=== PATIENT | female | born 1970 | race Caucasian/White ===

== ENCOUNTER 2020-08-06 12:25 | Outpatient (REF) | payer OTHER, SELFPAY ==
[2020-08-06 13:21] LABS: Basophils Percent Auto 0.6 % (0-2); Eosinophils Absolute Auto 0.2 X10*3/uL (0.0-0.4); Eosinophils Percent Auto 3.2 % (0-4); Hematocrit 41.4 % (37-47); Hemoglobin 13.5 g/dl (12.0-16.0); Imm Gran Abs Auto 0.02 X10*3/uL (0.00-0.03); Imm Gran Pct Auto 0.3 % (0.0-0.4); Lymphocytes Absolute Auto 2.4 X10*3/uL (1.2-4.9); Lymphocytes Percent Auto 35.3 % (20-40); MANUAL DIFF FLAG NO; Mean Corpuscular HGB Conc 32.6 g/dl (31.0-35.0); Mean Corpuscular Hemoglobin 28.7 pg (27.0-33.0); Mean Corpuscular Volume 87.9 fL (80-98); Mean Platelet Volume 10.8 fL (9.4-12.3); Monocytes Absolute Auto 0.7 X10*3/uL (0.1-1.2); Monocytes Percent Auto 9.7 % (2-11); Neutrophils Absolute Auto 3.5 X10*3/uL (2.0-8.3); Neutrophils Percent Auto 50.9 % (45-73); Platelet Count 340 X10*3/uL (160-400); Red Blood Count 4.71 X10*6/uL (4.20-5.50); Red Cell Distribution Width 13.3 % (11.0-16.0); White Blood Count 6.8 X10*3/uL (4.8-10.8)
[2020-08-06 13:32] LABS: Estimated Average Glucose 108 mg/dL; Hemoglobin A1c % 5.4 %
[2020-08-06 13:47] LABS: Creatinine Urine 101.56 mg/dL
[2020-08-06 13:49] LABS: Creatinine Urine 100.33 mg/dL; Microalbumin Urine < 5.0 mg/L
[2020-08-06 16:57] LABS: Alanine Aminotransferase 30 U/L (0-31); Albumin Level 4.5 g/dL (3.5-5.0); Alkaline Phosphatase 67 U/L (39-117); Anion Gap 14 (12-20); Aspartate Amino Transferase 21 U/L (5-31); Bilirubin Total 0.3 mg/dL (0.0-1.0); Blood Urea Nitrogen 9 mg/dL (9-16); Calcium 9.2 mg/dL (8.4-10.2); Carbon Dioxide 25 mmol/L (22-29); Chloride 105 mmol/L (96-108); Cholesterol 205 mg/dL; Estimated Glomerular Filt Rate > 60; Glucose Random 101 mg/dL (60-115); HDL Cholesterol 42 mg/dL; LDL Cholesterol Calculated 121 mg/dl; Potassium 4.4 mmol/l (3.3-5.1); Sodium 140 mmol/L (135-145); Total Protein 7.2 g/dL (6.5-8.0); Triglycerides 210 mg/dL
[2020-08-06 17:17] LABS: Thyroid Stimulating Hormone 4.45 uIU/mL (0.32-4.0)
== END 2020-08-06 12:26 | disposition home or self-care (01) ==
LOC: HO.LAB 12:25
PROVIDERS: PCP Internal Medicine; Visit Provider Internal Medicine
DX: E03.8 Other specified hypothyroidism (principal); E11.9 Type 2 diabetes mellitus without complications; E78.2 Mixed hyperlipidemia; G47.33 Obstructive sleep apnea (adult) (pediatric)
CPT/HCPCS: 36415; 80053; 80061; 82043; 83036; 84443; 85025

== ENCOUNTER 2021-03-20 14:18 | Outpatient (REF) | payer OTHER, SELFPAY ==
[2021-03-20 15:11] LABS: MANUAL DIFF FLAG NO
[2021-03-20 15:14] LABS: Basophils Percent Auto 0.2 % (0-2); Eosinophils Absolute Auto 0.2 X10*3/uL (0.0-0.4); Eosinophils Percent Auto 1.7 % (0-4); Hematocrit 39.8 % (37-47); Hemoglobin 13.2 g/dl (12.0-16.0); Imm Gran Abs Auto 0.02 X10*3/uL (0.00-0.03); Imm Gran Pct Auto 0.2 % (0.0-0.4); Lymphocytes Absolute Auto 2.6 X10*3/uL (1.2-4.9); Lymphocytes Percent Auto 29.2 % (20-40); Mean Corpuscular HGB Conc 33.2 g/dl (31.0-35.0); Mean Corpuscular Hemoglobin 29.1 pg (27.0-33.0); Mean Corpuscular Volume 87.9 fL (80-98); Mean Platelet Volume 10.7 fL (9.4-12.3); Monocytes Absolute Auto 0.8 X10*3/uL (0.1-1.2); Monocytes Percent Auto 8.7 % (2-11); Neutrophils Absolute Auto 5.3 X10*3/uL (2.0-8.3); Platelet Count 326 X10*3/uL (160-400); Red Blood Count 4.53 X10*6/uL (4.20-5.50); Red Cell Distribution Width 13.3 % (11.0-16.0); White Blood Count 8.9 X10*3/uL (4.8-10.8)
[2021-03-20 15:33] LABS: Estimated Average Glucose 108 mg/dL; Hemoglobin A1c % 5.4 %
[2021-03-20 15:38] LABS: Alanine Aminotransferase 20 U/L (0-31); Albumin Level 4.3 g/dL (3.5-5.0); Alkaline Phosphatase 71 U/L (39-117); Anion Gap 11 (12-20); Aspartate Amino Transferase 16 U/L (5-31); Bilirubin Total 0.5 mg/dL (0.0-1.0); Blood Urea Nitrogen 6 mg/dL (9-16); Calcium 9.3 mg/dL (8.4-10.2); Carbon Dioxide 28 mmol/L (22-29); Chloride 106 mmol/L (96-108); Cholesterol 161 mg/dL; Estimated Glomerular Filt Rate > 60; Glucose Random 98 mg/dL (60-115); HDL Cholesterol 37 mg/dL; LDL Cholesterol Calculated 102 mg/dl; Potassium 4.2 mmol/L (3.3-5.1); Sodium 141 mmol/L (135-145); Triglycerides 111 mg/dL
[2021-03-20 16:00] LABS: Thyroid Stimulating Hormone 1.44 uIU/mL (0.32-4.0)
[2021-03-20 17:12] LABS: Creatinine Urine 237.02 mg/dL; Microalbum/Creatinine Ratio Ur 5.4 ug/mg cr
== END 2021-03-20 14:19 | disposition home or self-care (01) ==
LOC: HO.LAB 14:18
PROVIDERS: PCP Internal Medicine; Visit Provider Internal Medicine
DX: E03.8 Other specified hypothyroidism (principal); E11.9 Type 2 diabetes mellitus without complications; E78.2 Mixed hyperlipidemia; G47.33 Obstructive sleep apnea (adult) (pediatric)
CPT/HCPCS: 36415; 80053; 80061; 82043; 83036; 84443; 85025

== ENCOUNTER 2021-03-20 15:10 | Emergency (ER) | payer OTHER, SELFPAY ==
[2021-03-20 16:31] VITALS: BP 115/65; PULSE 75; RESP 16; TEMP 37.1; O2SAT 100; BMI 25.8
[2021-03-20 17:15] VITALS: BP 129/69; PULSE 74; RESP 18; TEMP 36.7; O2SAT 97
--- NOTE | 2021-03-20 17:28 | ED.GENADULT ---
HPI - General Adult General Chief complaint: Back Pain/Injury Stated complaint: neck pain Time Seen by Provider: 03/20/21 17:27 Source: patient Mode of arrival: ambulatory Limitations: no limitations History of Present Illness HPI narrative: 50-year-old female is here today for complaining of left shoulder and neck pain. Patient reports that she will couple 1 week ago with the left neck pain. Now she reports that the pain radiates to her shoulders. Denies any other symptoms. Able to move her extremities and has good range of motions to both upper extremities. Patient denies headache, dizziness, chest pain, respiratory distress. Onset (ago): week(s) (One) Location: neck and left Radiation: extremity Severity: moderate Severity scale (1-10): 7 Quality: aching Pain Consistency: constant Relieving factors: immobilization Exacerbating factors: movement Associated symptoms: denies other symptoms Related Data Previous Rx's Medication Instructions Recorded cyclobenzaprine 10 mg tablet 10 mg PO BID PRN #10 tab 03/20/21 ibuprofen 600 mg tablet 600 mg PO Q8H PRN #20 tab 03/20/21 Allergies Allergy/AdvReac Type Severity Reaction Status Date / Time simvastatin Allergy Unknown abd pain Verified 03/20/21 16:36 No Known Allergies Allergy Verified 03/20/21 16:36 Review of Systems Review of Systems: Constitutional : No Weight loss, No Fever, No Chills, No Night Sweats, No Fatigue, No Malaise ENT/Mouth : No Hearing loss, No Ear Pain, No Nasal Congestion, No Sinus Pain, No Hoarseness, No sore throat, No Rhinorrhea, No Swallowing Difficulty Eyes: No Eye Pain, No Swelling, No Redness, No Foreign Body, No Discharge, No Vision Changes Cardiovascular : No Chest Pain, No SOB, No Dyspnea on Exertion, No Orthopnea, No Edema, No Palpitations Respiratory : No Cough, No Sputum, No Wheezing, No Smoke Exposure, No Dyspnea Genitourinary : no irregular bleeding, No Dysuria, No Urinary Frequency, No Hematuria, No Urinary Incontinence, No Urgency, No Flank Pain, No Urinary Flow Changes, No Hesitancy Musculoskeletal : No joint pain, No Myalgias, No Joint Swelling Skin : No Skin Lesions, No rash Neuro : No Weakness, No Numbness, No Paresthesias, No Loss of Consciousness, No Dizziness, No Headache Psych : No Anxiety/Panic, No Depression, No SI/HI/AH/VH, No Social Issues, Yes all other systems are reviewed and are negative PMFSH Past Medical History Medical History (Updated 03/20/21 @ 17:50 by Brandy Rawls [facility]) Diabetes Hypercholesteremia Hyperthyroidism Social History Social History Advance Directives: No Advance Directives Information Provided: No Patient : No Physical Exam Vital Signs: Vital Signs: Last Vital Signs Temp 98.1 F 03/20/21 17:15 Pulse 74 03/20/21 17:15 Resp 18 03/20/21 17:15 BP 129/69 03/20/21 17:15 Pulse Ox 97 03/20/21 17:15 Body Mass Index 25.8 Const: General: healthy appearing, no acute distress and well developed Nutritional Appearance: well nourished Orientation/consciousness: patient oriented x3 Neck: Neck: Yes normal visual inspection, Yes full ROM, Yes trachea midline and Yes other (Trapezius muscle tenderness) Thyroid: Thyroid normal Chest: Chest palpation & inspection: normal inspection of the chest Resp: Effort & Inspection: normal respiratory effort Auscultation: clear to auscultation bilaterally Cardio: Rate: regular rate Rhythm: regular rhythm GI: Inspection: Yes normal to inspection Skin: General skin exam: elasticity normal, turgor normal and dry skin Neuro: General: patient oriented x3 Course Course Course Narrative: Patient is here today for complains of left neck pain radiating to left shoulder. Patient reports that she woke up 1 week ago with left neck pain. She denies any injuries. Patient reports that she feels like her neck is stiff and she is unable to move it to either the left or right side. Patient reports that her trapezius muscle is also sore. Patient denies any heavy lifting. Patient denies any other symptoms. I will order ibuprofen and cyclobenzaprine. I will send her home to follow-up with her PCP for possible physical therapy. Patient is agreeable to plan of care Discharge Plan Discharge Clinical Impression: Muscle spasm of left shoulder, Neck and shoulder pain Patient Disposition: Home, Self-Care Instructions: Muscle Spasm (ED), Neck Pain (ED) Additional Instructions: You were seen here today for neck pain. You were given muscle relaxant and anti-inflammatory medication. Please continue to take that at home on as needed basis. You may apply heat to the affected area. Please follow-up with your primary care provider for possible physical therapy. You may return to emergency department if your symptoms will get worse or if you experience any additional concerning symptoms. Prescriptions: New cyclobenzaprine 10 mg tablet 10 mg PO BID PRN (Reason: muscle spasm) Qty: 10 RF: 0 ibuprofen 600 mg tablet 600 mg PO Q8H PRN (Reason: pain) Qty: 20 RF: 0
[2021-03-20] MEDS: Cyclobenzaprine HCl 10 MG TABLET PO (18:07)
[2021-03-20] MEDS: Ibuprofen 600 MG TABLET PO (18:07)
== END 2021-03-20 18:20 | disposition home or self-care (01) ==
PROVIDERS: Emergency Provider Emergency Medicine; PCP Internal Medicine
DX: M62.838 Other muscle spasm (principal); M54.2 Cervicalgia; M25.512 Pain in left shoulder; E11.9 Type 2 diabetes mellitus without complications
CPT/HCPCS: 99283; 99284

== ENCOUNTER 2021-05-26 19:48 | Emergency (ER) | payer OTHER, SELFPAY ==
[2021-05-26 21:06] VITALS: BP 123/78; PULSE 110; RESP 18; TEMP 37.2; O2SAT 99; BMI 27.8
[2021-05-26 21:30] LABS: UPreg QC Valid YES; Urine Pregnancy NEGATIVE (NEGATIVE)
[2021-05-26 21:34] LABS: Appearance Urine CLOUDY; Color Urine RED; Glucose Urine UA NEG (NEG); Leukocyte Esterase Urine TRACE (NEG); Nitrite Urine NEG (NEG); PH 6.5 (5.0-8.0); UACC Culture Trigger YES; Urine Blood 2+ (NEG); Urine Ketones NEG (NEG); Urine Protein 3+ MG/DL (NEG-TRACE)
[2021-05-26 21:35] LABS: RBC Urine TNTC /HPF (0)
[2021-05-26 21:36] LABS: Bacteria Urine 1+ /LPF
[2021-05-26 22:30] VITALS: BP 118/70; PULSE 97; RESP 18; TEMP 36.9; O2SAT 97
--- NOTE | 2021-05-26 22:41 | ED_ITS ---
HPI - Female Genitourinary General Chief complaint: Urogenital-Female Stated complaint: Blood in urine Time Seen by Provider: 05/26/21 22:24 Source: patient Mode of arrival: ambulatory Limitations: no limitations History of Present Illness HPI Narrative: Patient comes emergency room complaining of hematuria, frequency starting approximately 1 hour prior to arrival. Patient denies flank pain, no fever chills. Related Data Previous Rx's Medication Instructions Recorded cyclobenzaprine 10 mg tablet 10 mg PO BID PRN #10 tab 03/20/21 ibuprofen 600 mg tablet 600 mg PO Q8H PRN #20 tab 03/20/21 phenazopyridine 100 mg tablet 100 mg PO TID #6 tab 05/26/21 sulfamethoxazole 800 1 tab PO BID #6 tab 05/26/21 mg-trimethoprim 160 mg tablet (Bactrim DS) Allergies Allergy/AdvReac Type Severity Reaction Status Date / Time simvastatin Allergy Unknown abd pain Verified 03/20/21 16:36 No Known Allergies Allergy Verified 03/20/21 16:36 Review of Systems Review of Systems: Constitutional : No Weight loss, No Fever, No Chills, No Night Sweats, No Fatigue, No Malaise ENT/Mouth : No Hearing loss, No Ear Pain, No Nasal Congestion, No Sinus Pain, No Hoarseness, No sore throat, No Rhinorrhea, No Swallowing Difficulty Eyes: No Eye Pain, No Swelling, No Redness, No Foreign Body, No Discharge, No Vision Changes Cardiovascular : No Chest Pain, No SOB, No Dyspnea on Exertion, No Orthopnea, No Edema, No Palpitations Respiratory : No Cough, No Sputum, No Wheezing, No Smoke Exposure, No Dyspnea Gastrointestinal : No Nausea, No Vomiting, No Diarrhea, No Constipation, No abdominal Pain, No Hematochezia, No Melena Genitourinary : Complaining of dysuria and hematuria No Urinary Incontinence, No Urgency, No Flank Pain, No Urinary Flow Changes, No Hesitancy Musculoskeletal : No joint pain, No Myalgias, No Joint Swelling Skin : No Skin Lesions, No rash Neuro : No Weakness, No Numbness, No Paresthesias, No Loss of Consciousness, No Dizziness, No Headache Psych : No Anxiety/Panic, No Depression, No SI/HI/AH/VH, No Social Issues, Heme/Lymph: No Bruising, No Bleeding,No Lymphadenopathy Endocrine : No Polyuria, No Polydipsia, No Temperature Intolerance [facility] Past Medical History Medical History Diabetes Hypercholesteremia Hyperthyroidism Social History Social History Advance Directives: No Advance Directives Information Provided: No Patient : No Physical Exam Vital Signs: Vital Signs: Last Vital Signs Temp 98.4 F 05/26/21 22:30 Pulse 97 05/26/21 22:30 Resp 18 05/26/21 22:30 BP 118/70 05/26/21 22:30 Pulse Ox 97 05/26/21 22:30 Body Mass Index 27.8 Const: Other: Appearance: Alert. Oriented X3. No acute distress. Well- appearing Eyes: Pupils equal, round and reactive to light. ENT: Pharynx normal. Neck: Normal inspection. Neck supple. No lymph nodes noted. No crepitus CVS: Normal heart rate and rhythm. Pulses normal. Normal S1 and S2 Respiratory: No respiratory distress. Breath sounds normal. No Wheezing. No rales Abdomen: Soft and nontender. No rigidity. No distention, no flank pain Skin: Skin warm and dry. Normal skin color. Normal skin turgor. Extremities: No lower extremity edema. No lower extremity edema. No Lacerations. No Rash Neuro: Oriented X 3. No motor deficit. No sensory deficit. Moving all extermities. No slurred speech. Course Course Course Narrative: Patient has a urinary tract infection. Patient has no flank pain, no fever, pyelonephritis/sepsis not suspected. Patient was given 1 dose of phenazopyridine and Bactrim in the emergency room. Patient instructed to follow-up with her primary care physician for resolution of the UTI MDM - Female Genitourinary Lab Data Labs: Lab Results 05/26/21 05/26/21 Range/Units 21:19 21:19 Urine Color RED Urine Appearance CLOUDY Urine pH 6.5 (5.0-8.0) Ur Specific [place] 1.020 (1.005-1.025) Urine Protein 3+ H (NEG-TRACE) MG/DL Urine Glucose (UA) NEG (NEG) MG/DL Urine Ketones NEG (NEG) MG/DL Urine Blood 2+ H (NEG) Urine Nitrite NEG (NEG) Ur Leukocyte Esterase TRACE H (NEG) Urine RBC TNTC H (0) /HPF Urine WBC 1-4 (0-4) /HPF Ur Squamous Epith Cells NONE /LPF Urine Bacteria 1+ /LPF Urine Test NEGATIVE (NEGATIVE) Discharge Plan Discharge Clinical Impression: Urinary tract infection Patient Disposition: Home, Self-Care Instructions: Urinary Tract Infection in Women (ED) Additional Instructions: Please follow-up with your primary care physician tomorrow. If you have any worsening or new symptoms, please return to the emergency room or call 911 Prescriptions: New phenazopyridine 100 mg tablet 100 mg PO TID Qty: 6 RF: 0 sulfamethoxazole-trimethoprim [Bactrim DS] 800-160 mg tablet 1 tab PO BID Qty: 6 RF: 0 No Action cyclobenzaprine 10 mg tablet 10 mg PO BID PRN (Reason: muscle spasm) Qty: 10 RF: 0 ibuprofen 600 mg tablet 600 mg PO Q8H PRN (Reason: pain) Qty: 20 RF: 0
== END 2021-05-26 23:38 | disposition home or self-care (01) ==
PROVIDERS: Emergency Provider Emergency Medicine; PCP Internal Medicine
DX: N39.0 Urinary tract infection, site not specified (principal); E11.9 Type 2 diabetes mellitus without complications
CPT/HCPCS: 81001; 81025; 87086; 87088; 87186; 99283

== ENCOUNTER 2021-08-28 07:50 | Outpatient (REF) | payer OTHER, SELFPAY ==
--- NOTE | ~2021-08-28 | MM_ITS ---
EXAMINATION: MM SCREENING DIGITAL BREAST TOMOSYNTHESIS, BILATERAL CLINICAL INFORMATION: Screening. Asymptomatic. The lifetime risk of breast cancer based on the Tyrer-Cuzick Model is 12.2%. COMPARISON: Mammography: 04/06/2020 and studies dating back to 08/17/2013. TECHNIQUE: Digital breast tomosynthesis is performed in both the craniocaudal and mediolateral oblique views along with computer-aided detection (CAD). Synthesized 2D images are generated from the tomosynthesis. FINDINGS: There are scattered areas of fibroglandular density (ACR BI-RADS breast composition Category b). There is a stable parenchymal pattern of the right breast without new abnormal dominant mass or suspicious grouping of microcalcifications. Within the lateral aspect of the left breast approximately 7 cm from the nipple there is a circumscribed somewhat lobulated density measuring 6 x 7 mm in size without associated microcalcifications. On the mediolateral oblique study there is a circumscribed density along the nipple line however this lies only approximately 4 cm from the nipple and may not correspond to the craniocaudal density. Recommend further evaluation with spot compression view in craniocaudal projection and a 90 degree mediolateral view of the left breast. If lesion is persistent then ultrasound could be performed. MM/MM tomosynthesis screening BI IMPRESSION: Left breast density for further evaluation as described. ASSESSMENT: BI-RADS 0: Incomplete - Need Additional Imaging Evaluation RECOMMENDATION: 1. Additional views of the left breast. 2. Targeted ultrasound if warranted after review of the additional views. 3. Radiology department staff will contact the patient for additional imaging.
== END 2021-08-28 07:51 | disposition home or self-care (01) ==
LOC: HO.MAMMO 07:50
PROVIDERS: PCP Internal Medicine; Visit Provider Internal Medicine
DX: Z12.31 Encounter for screening mammogram for malignant neoplasm of breast (principal)
CPT/HCPCS: 77063; 77067

== ENCOUNTER 2021-09-10 14:09 | Outpatient (REF) | payer OTHER, SELFPAY ==
--- NOTE | ~2021-09-10 | MM_ITS ---
EXAMINATION: MM DIAGNOSTIC DIGITAL BREAST TOMOSYNTHESIS, LEFT US DIAGNOSTIC ULTRASOUND BREAST, LEFT CLINICAL INFORMATION: Recall from screening for question of oval density 6 mm mid 3:00 left breast. TC score 12%. COMPARISON: Mammography: 08/28/2021, 04/06/2020, 10/25/2018, 05/18/2017, 05/13/2016 TECHNIQUE: Digital breast tomosynthesis is performed. 2D images are generated from the tomosynthesis. The following views are obtained: Spot CC, spot MLO, standard ML. Ultrasound left breast is targeted to the outer breast. Grayscale imaging and color Doppler are performed without and with harmonics. FINDINGS: There are scattered areas of fibroglandular density (ACR BI-RADS breast composition Category b). Additional views show subtle smooth oval nodular asymmetry mid 3:00 left breast. There is no spiculation or associated calcification. In retrospect, finding is questionably seen on prior exams without developing density. Ultrasound left breast demonstrates a simple cyst 3:00 position 7 cm from nipple measuring 5 x 4 mm. There is no solid mass or architectural abnormality. This cyst may correspond to the mammographic finding. Results are discussed with the patient at time of visit. As a precaution, short interval follow-up left mammography will be performed in 6 months. MM/MM tomosynthesis added views L IMPRESSION: 1. Benign-appearing nodular asymmetry mid 3:00 left breast, possibly chronic and partially obscured on prior exams. 2. Benign simple cyst outer left breast 0.5 cm which may correspond to the mammographic finding. ASSESSMENT: BI-RADS 3: Probably Benign RECOMMENDATION: Diagnostic left mammography in 6 months. This patient's information was entered into a reminder system with a target due date for their next mammogram.
== END 2021-09-10 14:10 | disposition home or self-care (01) ==
LOC: HO.MAMMO 14:09
PROVIDERS: Visit Provider Internal Medicine
DX: R92.2 Inconclusive mammogram (principal)
CPT/HCPCS: 76642; 77061; 77065

== ENCOUNTER 2022-03-11 12:41 | Outpatient (REF) | payer OTHER, SELFPAY ==
--- NOTE | ~2022-03-11 | MM_ITS ---
EXAMINATION: MM DIAGNOSTIC DIGITAL BREAST TOMOSYNTHESIS, LEFT US DIAGNOSTIC ULTRASOUND BREAST, LEFT CLINICAL INFORMATION: Short interval six-month follow-up for smooth oval nodular asymmetry 3:00 left breast likely related to simple cyst on prior ultrasound. The lifetime risk of breast cancer based on the Tyrer-Cuzick Model is 12%. COMPARISON: Mammography: 09/10/2021, 08/28/2021 (BI-RADS 0), 10/25/2018 TECHNIQUE: Digital breast tomosynthesis is performed in both the craniocaudal and mediolateral oblique views along with computer-aided detection (CAD). Synthesized 2D images are generated from the tomosynthesis. Ultrasound left breast is targeted to the outer breast using grayscale imaging and color Doppler without and with harmonics. FINDINGS: There are scattered areas of fibroglandular density (ACR BI-RADS breast composition Category b). The smooth nodule under 1 cm mid to posterior 3:00 position is similar in size and contour. There is no interval dominant mass or architectural abnormality or abnormal calcifications. Ultrasound left breast again shows small simple cyst 3:00 position 7 cm from nipple likely corresponding to the mammographic finding although smaller in size, measuring 3 x 5 mm. There is no solid mass or architectural abnormality or focal duct ectasia. Results are discussed with the patient at time of visit. MM/MM tomosynthesis diagnostic LT IMPRESSION: -Mammography shows no significant change from prior study. -Ultrasound demonstrates small cyst outer left breast likely corresponding to the mammographic finding. No solid nodule or architectural abnormality. ASSESSMENT: BI-RADS 3: Probably Benign RECOMMENDATION: Diagnostic bilateral mammography at time of annual mammography, due in 6 months. This patient's information was entered into a reminder system with a target due date for their next mammogram.
== END 2022-03-11 12:42 | disposition home or self-care (01) ==
LOC: HO.MAMMO 12:41
PROVIDERS: Visit Provider Internal Medicine
DX: R92.2 Inconclusive mammogram (principal)
CPT/HCPCS: 76642; 77061; 77065

== ENCOUNTER 2022-03-16 08:29 | Day surgery (SDC) | payer OTHER, SELFPAY ==
[2022-03-10 11:54] VITALS: BMI 28.6
--- NOTE | 2022-03-13 08:39 | P.CONAN_ITS ---
Documented by User: Keri Hernandez NP 03/13/22 08:39 HPI - Anesthesia Eval Consult details Narrative: 51yo F for Upper Endoscopy with Balloon Dilitation, Colonoscopy PMFSH Past Medical History Medical History (Updated 03/10/22 @ 11:53 by Rosalba Thomas RN) Anxiety Asthma Bipolar disorder Depression Dysphagia Hypercholesteremia Hyperthyroidism Sleep apnea Surgical History Surgical History (Updated 03/10/22 @ 11:44 by Rosalba Thomas RN) Hx of cholecystectomy Hx of laparoscopy Hx of tubal ligation Social History Social History Patient Tobacco Use Status: Former Tobacco user Are you DNR?: No Advance Directives: No Advance Directives Information Provided: Yes Recently lost weight without trying: No Nutrition Risks: No Nutritional Risk Patient : No Meds Allergies Allergy/AdvReac Type Severity Reaction Status Date / Time simvastatin Allergy Intermediate abd pain Verified 03/10/22 11:46 Home Medications Medication Instructions Recorded Confirmed Last Taken Type atorvastatin 80 mg tablet 1 tab PO BEDTIME 03/10/22 03/10/22 Unknown History cetirizine 10 mg tablet 1 tab PO DAILY 03/10/22 03/10/22 Unknown History clonazepam 0.5 mg tablet 1 tab PO BID PRN anxiety 03/10/22 03/10/22 Unknown History fluticasone propionate 110 2 puff inhalation BID 03/10/22 03/10/22 Unknown History mcg/actuation HFA aerosol inhaler (Flovent HFA) fluticasone propionate 50 1 spray intranasal BID 03/10/22 03/10/22 Unknown History mcg/actuation nasal spray,suspension levothyroxine 100 mcg tablet 1 tab PO DAILY 03/10/22 03/10/22 Unknown History sertraline 50 mg tablet 1.5 tab PO QAM 03/10/22 03/10/22 Unknown History Exam Exam Date and Time: March 13, 2022 0839 Height,Weight and Vital Signs: Height 4 ft 11 in Weight 64.41 kg Assessment and Plan Assessment Anesthesia Assessment: Chart Reviewed Documented by User: Sergo Squires MD 03/16/22 09:39 [facility] Past Medical History Medical History (Updated 03/10/22 @ 11:53 by Rosalba Thomas RN) Anxiety Asthma Bipolar disorder Depression Dysphagia Hypercholesteremia Hyperthyroidism Sleep apnea Family History Family history of problems with anesthesia: No Surgical History Surgical History (Updated 03/10/22 @ 11:44 by Rosalba Thomas RN) Hx of cholecystectomy Hx of laparoscopy Hx of tubal ligation History of Problems with Anesthesia: No Social History Social History Patient Tobacco Use Status: Former Tobacco user Are you DNR?: No Advance Directives: No Advance Directives Information Provided: Yes Recently lost weight without trying: No Nutrition Risks: No Nutritional Risk Patient : No Meds Allergies Allergy/AdvReac Type Severity Reaction Status Date / Time simvastatin Allergy Intermediate abd pain Verified 03/10/22 11:46 Home Medications Medication Instructions Recorded Confirmed Last Taken Type atorvastatin 80 mg tablet 1 tab PO BEDTIME 03/10/22 03/10/22 Unknown History cetirizine 10 mg tablet 1 tab PO DAILY 03/10/22 03/10/22 Unknown History clonazepam 0.5 mg tablet 1 tab PO BID PRN anxiety 03/10/22 03/10/22 Unknown History fluticasone propionate 110 2 puff inhalation BID 03/10/22 03/10/22 Unknown History mcg/actuation HFA aerosol inhaler (Flovent HFA) fluticasone propionate 50 1 spray intranasal BID 03/10/22 03/10/22 Unknown History mcg/actuation nasal spray,suspension levothyroxine 100 mcg tablet 1 tab PO DAILY 03/10/22 03/10/22 Unknown History sertraline 50 mg tablet 1.5 tab PO QAM 03/10/22 03/10/22 Unknown History Exam Airway Mallampati Class: I TM Dist: >3cm Neck ROM: Full Loose/Missing/Broken Teeth: No Heart: rrr Lungs: clear Assessment and Plan Final Anesthetic Review Family History of Problems with Anesthesia: No History of Problems with Anesthesia: No NPO: Yes ASA Class: II Final Preanesthetic Review: No Changes in Pt Med Stat, Meds/Allgs Chart Reviewed, Consent Obtained/Reviewed and Anes Risks/Benef Reviewed Patient Risk: Intermediate Procedure Risk: Low Anesthetic Plan Anesthetic Plan: MAC: Disposition: Standard PACU
[2022-03-16 09:13] VITALS: BP 116/76; PULSE 81; RESP 19; TEMP 36.6; O2SAT 99
[2022-03-16] MEDS: Lactated Ringers 1,000 ML 100 ML IVCONT (09:30)
[2022-03-16 10:42] VITALS: BP 117/72; PULSE 81; RESP 14; TEMP 36.2; O2SAT 99
--- NOTE | 2022-03-16 10:48 | P.BOP_ITS ---
Brief Operative Note Date of Service: 03/16/22 Pre-op diagnosis: Dysphagia, Screening Post-op diagnosis: other (Gerd, Hiatal hernia, Gastritis, Colon polyp) Procedure: EGD with biopsies and Balloon dilation, Colonoscopy to the cecum and TI with hot snare polypectomy Surgeon: Gabriele Moreau Anesthesia: MAC Was an Digital Sales Executive used for this Procedure?: No Estimated blood loss (mL): 2.0 Pathology: other (A. EG Junction at 36cm B. Gastric antrum C. Esophagus at 25cm D. Polyp at 20cm) Condition: stable Disposition: PACU
[2022-03-16 10:57] VITALS: BP 111/65; PULSE 77; RESP 16; O2SAT 99
[2022-03-16 11:12] VITALS: BP 128/76; PULSE 67; RESP 16; TEMP 36.2; O2SAT 99
--- NOTE | 2022-03-16 11:19 | OP_ITS ---
SURGEON: Gabriele Moreau MD INDICATIONS: The patient presents for evaluation of dysphagia and colorectal cancer screening. Full consent obtained from her for both procedures, including risks of bleeding and perforation. PREOPERATIVE DIAGNOSIS: POSTOPERATIVE DIAGNOSIS: PROCEDURE PERFORMED: ESTIMATED BLOOD LOSS: COMPLICATIONS: ANESTHESIA: Monitored anesthesia care. ASSISTANTS: SPECIMENS: PROCEDURES: Esophagogastroduodenoscopy with biopsies and balloon dilation of gastroesophageal junction, and colonoscopy to cecum and terminal ileum with hot snare polypectomy. PREOPERATIVE DIAGNOSES: Dysphagia, colorectal cancer screening. POSTOPERATIVE DIAGNOSES: Dysphagia, colorectal cancer screening, gastroesophageal reflux, small hiatal hernia, mild gastritis, rule out eosinophilic esophagitis, colon polyp, diverticulosis, internal hemorrhoids. DESCRIPTION OF PROCEDURE: The patient was placed in the left lateral decubitus position. The Olympus video gastroscope was passed in the posterior oropharynx and upper esophagus under direct vision. The scope was passed slowly to the distal esophagus. The gastroesophageal junction appeared at 36 cm. There was evidence of some erythema, edema, and some mild friability. There was no evidence of any definitive stricture, ring, ulceration, nor mass. The scope easily entered into the stomach. There was a small hiatal hernia. The scope was advanced to pylorus and the duodenum was cannulated to the descending portion. The duodenum including the bulb appeared normal without mass or ulceration. The scope was withdrawn back in the stomach. The gastric antrum had some mild areas of edema and erythema. Biopsies were obtained. There was good peristalsis. The scope was retroflexed visualizing the proximal stomach carefully, which appeared normal, without any sign of mass or ulceration. The scope was straightened and withdrawn back in the esophagus. Again, the gastroesophageal junction appeared patent, but I did use a [employer] balloon to dilate the gastroesophageal junction from 18 mm to 19 mm to 20 mm at the recommended pressure for between 30 and 60 seconds each. There was no appreciable difference nor any significant heme noted post dilation. Biopsies were obtained at the EG junction at 36 cm. Proximal to this, the esophageal mucosa appeared normal. There was no evidence of any proximal esophageal rings. Biopsies were obtained at 25 cm. The scope was withdrawn from the patient. She was turned around for colonoscopy. The digital rectal exam revealed no abnormalities. The Olympus video pediatric colonoscope was entered into the rectum and advanced easily to the cecum. Once in the cecum, I did identify normal-appearing cecal pouch with appendiceal orifice and a normal-appearing ileocecal valve. The terminal ileum was cannulated and appeared normal. Scope was withdrawn back in the colon. The entire cecum and ileocecal valve appeared normal. The scope was slowly withdrawn assessing all mucosal surfaces carefully. Preparation was excellent. At 20 cm, there was an approximately 6 mm to 8 mm polyp, which was removed by hot snare polypectomy and recovered by suction. The polypectomy site appeared clean, without any sign of residual polyp nor bleeding. I did not visualize any other polyps, colitis, or angiodysplasia. There was a mild amount of sigmoid diverticulosis. In the rectum, scope was retroflexed visualizing some small internal hemorrhoids, but no other pathology. The rectal mucosa appeared normal. The scope was straightened and withdrawn the patient. She tolerated both procedures well and was returned to recovery area in stable condition. IMPRESSION: 1. Small hiatal hernia, gastroesophageal reflux. 2. Mild gastritis. 3. Rule out eosinophilic esophagitis. 4. Colon polyp. 5. Diverticulosis. 6. Internal hemorrhoids. PLAN: The results of the pathology will be checked. Given these findings, I am going to start her on omeprazole 40 mg daily to see if that will help with her dysphagia, in the event she is having some acid reflux induced esophageal spasm. If she continues to have significant dysphagia, I would then recommend further workup with barium swallow and esophageal motility studies. She will be seen in 3 months for followup in this regard. I would recommend a repeat colonoscopy in 5 years. She was advised not to use any aspirin and NSAIDs for 1 week. MD AZUL Bowens/ALFONSO / [id number]
== END 2022-03-16 11:43 | disposition home or self-care (01) ==
PROVIDERS: PCP Internal Medicine; Visit Provider Internal Medicine
PROC: (CPT 45385; principal; 2022-03-16 09:40)
PROC: 0DJD8ZZ Inspection of Lower Intestinal Tract, Via Natural or Artificial Opening Endoscopic (ICD-10-PCS; CPT 45378; 2022-03-16 09:40)
DX: Z12.11 Encounter for screening for malignant neoplasm of colon (principal); D12.5 Benign neoplasm of sigmoid colon; K57.30 Diverticulosis of large intestine without perforation or abscess without bleeding; K64.8 Other hemorrhoids; R13.10 Dysphagia, unspecified; K29.50 Unspecified chronic gastritis without bleeding; K21.9 Gastro-esophageal reflux disease without esophagitis; K44.9 Diaphragmatic hernia without obstruction or gangrene; E78.00 Pure hypercholesterolemia, unspecified; J45.909 Unspecified asthma, uncomplicated; E03.9 Hypothyroidism, unspecified; G47.33 Obstructive sleep apnea (adult) (pediatric); F31.9 Bipolar disorder, unspecified; Z79.51 Long term (current) use of inhaled steroids; Z79.899 Other long term (current) drug therapy; Z90.49 Acquired absence of other specified parts of digestive tract; Z87.891 Personal history of nicotine dependence
CPT/HCPCS: 45385; 43249; 43239; 88305; 88342; C1726

== ENCOUNTER 2022-07-10 11:38 | Outpatient (REF) | payer OTHER, SELFPAY ==
--- NOTE | ~2022-07-10 | XR_ITS ---
EXAMINATION: XR FOOT, BILATERAL XR ELBOW, BILATERAL XR HAND/WRIST, BILATERAL CLINICAL INFORMATION: Rheumatoid arthritis and pain. COMPARISON: None TECHNIQUE: 3 views each foot. 4 views each hand/wrist. 3 views each elbow. FINDINGS: BILATERAL FOOT: The intertarsal, ankle mortise and interphalangeal joint spaces are maintained normal without bony erosive changes. There is no osteopenia. Small calcaneal heel enthesophytes are seen. The soft tissues are normal. BILATERAL HAND/WRIST: The interphalangeal, carpometacarpal, MCP and intercarpal joint spaces are preserved without bony erosive changes or osteophytes. The soft tissues are normal. A solitary radiopaque density seen overlying the left 4th digit nail likely cosmetic. BILATERAL ELBOW: The joint spaces are maintained normal. No spurring or bony erosive changes. No loose bodies or joint effusion seen. XR/XR foot RT min 3V IMPRESSION: Small bilateral calcaneal heel enthesophytes. Otherwise unremarkable bilateral foot exam. Unremarkable bilateral hand/wrist. Unremarkable bilateral elbow joints.
--- NOTE | ~2022-07-10 | XR_ITS ---
EXAMINATION: XR FOOT, BILATERAL XR ELBOW, BILATERAL XR HAND/WRIST, BILATERAL CLINICAL INFORMATION: Rheumatoid arthritis and pain. COMPARISON: None TECHNIQUE: 3 views each foot. 4 views each hand/wrist. 3 views each elbow. FINDINGS: BILATERAL FOOT: The intertarsal, ankle mortise and interphalangeal joint spaces are maintained normal without bony erosive changes. There is no osteopenia. Small calcaneal heel enthesophytes are seen. The soft tissues are normal. BILATERAL HAND/WRIST: The interphalangeal, carpometacarpal, MCP and intercarpal joint spaces are preserved without bony erosive changes or osteophytes. The soft tissues are normal. A solitary radiopaque density seen overlying the left 4th digit nail likely cosmetic. BILATERAL ELBOW: The joint spaces are maintained normal. No spurring or bony erosive changes. No loose bodies or joint effusion seen. XR/XR hand wrist RT IMPRESSION: Small bilateral calcaneal heel enthesophytes. Otherwise unremarkable bilateral foot exam. Unremarkable bilateral hand/wrist. Unremarkable bilateral elbow joints.
--- NOTE | ~2022-07-10 | XR_ITS ---
EXAMINATION: XR FOOT, BILATERAL XR ELBOW, BILATERAL XR HAND/WRIST, BILATERAL CLINICAL INFORMATION: Rheumatoid arthritis and pain. COMPARISON: None TECHNIQUE: 3 views each foot. 4 views each hand/wrist. 3 views each elbow. FINDINGS: BILATERAL FOOT: The intertarsal, ankle mortise and interphalangeal joint spaces are maintained normal without bony erosive changes. There is no osteopenia. Small calcaneal heel enthesophytes are seen. The soft tissues are normal. BILATERAL HAND/WRIST: The interphalangeal, carpometacarpal, MCP and intercarpal joint spaces are preserved without bony erosive changes or osteophytes. The soft tissues are normal. A solitary radiopaque density seen overlying the left 4th digit nail likely cosmetic. BILATERAL ELBOW: The joint spaces are maintained normal. No spurring or bony erosive changes. No loose bodies or joint effusion seen. XR/XR elbow RT min 3V IMPRESSION: Small bilateral calcaneal heel enthesophytes. Otherwise unremarkable bilateral foot exam. Unremarkable bilateral hand/wrist. Unremarkable bilateral elbow joints.
--- NOTE | ~2022-07-10 | XR_ITS ---
EXAMINATION: XR FOOT, BILATERAL XR ELBOW, BILATERAL XR HAND/WRIST, BILATERAL CLINICAL INFORMATION: Rheumatoid arthritis and pain. COMPARISON: None TECHNIQUE: 3 views each foot. 4 views each hand/wrist. 3 views each elbow. FINDINGS: BILATERAL FOOT: The intertarsal, ankle mortise and interphalangeal joint spaces are maintained normal without bony erosive changes. There is no osteopenia. Small calcaneal heel enthesophytes are seen. The soft tissues are normal. BILATERAL HAND/WRIST: The interphalangeal, carpometacarpal, MCP and intercarpal joint spaces are preserved without bony erosive changes or osteophytes. The soft tissues are normal. A solitary radiopaque density seen overlying the left 4th digit nail likely cosmetic. BILATERAL ELBOW: The joint spaces are maintained normal. No spurring or bony erosive changes. No loose bodies or joint effusion seen. XR/XR foot LT min 3V IMPRESSION: Small bilateral calcaneal heel enthesophytes. Otherwise unremarkable bilateral foot exam. Unremarkable bilateral hand/wrist. Unremarkable bilateral elbow joints.
--- NOTE | ~2022-07-10 | XR_ITS ---
EXAMINATION: XR FOOT, BILATERAL XR ELBOW, BILATERAL XR HAND/WRIST, BILATERAL CLINICAL INFORMATION: Rheumatoid arthritis and pain. COMPARISON: None TECHNIQUE: 3 views each foot. 4 views each hand/wrist. 3 views each elbow. FINDINGS: BILATERAL FOOT: The intertarsal, ankle mortise and interphalangeal joint spaces are maintained normal without bony erosive changes. There is no osteopenia. Small calcaneal heel enthesophytes are seen. The soft tissues are normal. BILATERAL HAND/WRIST: The interphalangeal, carpometacarpal, MCP and intercarpal joint spaces are preserved without bony erosive changes or osteophytes. The soft tissues are normal. A solitary radiopaque density seen overlying the left 4th digit nail likely cosmetic. BILATERAL ELBOW: The joint spaces are maintained normal. No spurring or bony erosive changes. No loose bodies or joint effusion seen. XR/XR hand wrist LT IMPRESSION: Small bilateral calcaneal heel enthesophytes. Otherwise unremarkable bilateral foot exam. Unremarkable bilateral hand/wrist. Unremarkable bilateral elbow joints.
--- NOTE | ~2022-07-10 | XR_ITS ---
EXAMINATION: XR FOOT, BILATERAL XR ELBOW, BILATERAL XR HAND/WRIST, BILATERAL CLINICAL INFORMATION: Rheumatoid arthritis and pain. COMPARISON: None TECHNIQUE: 3 views each foot. 4 views each hand/wrist. 3 views each elbow. FINDINGS: BILATERAL FOOT: The intertarsal, ankle mortise and interphalangeal joint spaces are maintained normal without bony erosive changes. There is no osteopenia. Small calcaneal heel enthesophytes are seen. The soft tissues are normal. BILATERAL HAND/WRIST: The interphalangeal, carpometacarpal, MCP and intercarpal joint spaces are preserved without bony erosive changes or osteophytes. The soft tissues are normal. A solitary radiopaque density seen overlying the left 4th digit nail likely cosmetic. BILATERAL ELBOW: The joint spaces are maintained normal. No spurring or bony erosive changes. No loose bodies or joint effusion seen. XR/XR elbow LT min 3V IMPRESSION: Small bilateral calcaneal heel enthesophytes. Otherwise unremarkable bilateral foot exam. Unremarkable bilateral hand/wrist. Unremarkable bilateral elbow joints.
== END 2022-07-10 11:39 | disposition home or self-care (01) ==
LOC: HO.XRAY 11:38
PROVIDERS: PCP Internal Medicine; Visit Provider Student in an Organized Health Care Education/Training Program
DX: M06.9 Rheumatoid arthritis, unspecified (principal); R06.02 Shortness of breath; M25.541 Pain in joints of right hand; M25.542 Pain in joints of left hand; M25.531 Pain in right wrist; M25.532 Pain in left wrist; M79.671 Pain in right foot; M79.672 Pain in left foot; M25.522 Pain in left elbow; M25.521 Pain in right elbow
CPT/HCPCS: 73080; 73110; 73130; 73630; 99202

== ENCOUNTER 2022-07-23 10:00 | Outpatient (REF) | payer OTHER, SELFPAY ==
--- NOTE | 2022-07-23 16:13 | PFT_ITS ---
FLOWS: FEV1 104% of predicted at 2.40 L. FVC 98% of predicted at 2.83 L. FEV1 to FVC ratio of 0.85. No bronchodilator response. LUNG VOLUMES: Total lung capacity 98% of predicted at 4.25 L. Residual volume 106% of predicted at 1.65 L. Slow vital capacity 94% of predicted at 2.60 L. Expiratory reserve volume 38% of predicted at 0.31 L. Diffusion capacity is normal. IMPRESSION: No obstructive or restrictive ventilatory defect. No bronchodilator response. Essentially normal pulmonary function test. Roderick Rodriguez MD AP/MODL / [id number]
== END 2022-07-23 10:01 | disposition home or self-care (01) ==
LOC: HO.RESP 10:00
PROVIDERS: PCP Internal Medicine; Visit Provider Student in an Organized Health Care Education/Training Program
DX: R06.02 Shortness of breath (principal)
CPT/HCPCS: 94060; 94727; 94729

== ENCOUNTER → 2022-07-28 15:55 | Outpatient (REF) | payer OTHER, SELFPAY ==
--- NOTE | 2022-07-28 15:59 | CA_ITS ---
Transthoracic Echocardiogram Patient (Last, First, Middle): Nuha Garcia, Gender: Female Date of : 1970 Age: 51 Procedure Date: 07/28/2022 Procedure Type: Transthoracic Echocardiogram Location: OP Height: 149.86 cm Weight: 64.86 kg BSA: 1.60 m2 Heart Rate: bpm BP: 122 / 82 mmHg Pv Design And Installation Technician: JACKIE Referring MD: Thaddeus Jett MD Dietetic Technician: Tariq Fu MD Symptoms: R06.02 - Shortness of breath Study Quality: Adequate ECG Rhythm: Sinus Conclusions: - 1. Arvs-ag-hwbviiza LV systolic dysfunction with LVEF of 40-45% with impaired relaxation filling pattern and suggestion of regional wall motion abnormality consistent underlying coronary artery disease 2. Normal cardiac valvular Doppler 3. No gross pericardial effusion Findings Left Ventricle Normal left ventricular cavity size. There is normal left ventricular wall thickness. The left ventricular systolic function is mild to moderately decreased. The visually estimated ejection fraction is between 40-45%. Spectral Doppler is indicative of an impaired relaxation filling pattern. E/E prime ratio is between 8 and 15 consistent with indeterminate filling pressures. Peak GLS is -11.7%, which is reduced. Wall Motion Rest Echo Findings The mid inferior, apical septum, and mid inferoseptal segments are hypokinetic. The basal inferior and basal inferoseptal segments are akinetic. All other scored wall segments showed normal motion. Right Ventricle Normal right ventricular cavity size and systolic function. Atria Both atria are normal in size. There is no evidence of interatrial shunt. Aortic Valve Normal aortic valve structure and function. There is no aortic valve stenosis. There is no aortic valve regurgitation. Mitral Valve Normal mitral valve structure and function. There is trace mitral valve regurgitation. There is no mitral valve stenosis. Pulmonic Valve The pulmonic valve was not well visualized. Tricuspid Valve Likely normal tricuspid valve structure and function. Tricuspid regurgitation envelope is inadequate for calculation of right ventricular systolic pressure. Normal right atrial pressure. Great Vessels All visible segments of the aorta are normal in size. The pulmonary artery was not well visualized. Small plaque is seen in the sino tubular ridge. Venous The inferior vena cava is normal in size and collapses greater than 50% with inspiration. Pericardium/Pleural There is no evidence of pericardial effusion. Prior Study Comparison No prior study available for comparison. Measurements 2D Linear Measurements IVSd: 0.76 0.6-0.9/0.6-1.0 cm LVIDd: 4.30 3.9-5.3/4.2-5.9 cm LVIDd Index: 2.69 2.4-3.2/2.2-3.1 cm/m2 LVIDs: 3.53 2.0-3.6 cm LVPWd: 0.86 0.7-1.1 cm LA Diam: 2.80 2.7-3.8/3.0-4.0 cm LAIDs Index: 1.75 1.5-2.3 cm/m2 LV Mass: 133.20 67-162/88-224 g LV Mass Index: 83.25 43-95/49-115 g/m2 LVOT Diam: 2.00 3.0+(-)1.3 cm 2D Systolic Function EF 4C: 41.20 >55% EF 2C: 45.90 >55% EF BiP: 43.50 >55% Mitral Valve MV Pk E: 0.74 MV PK A: 0.78 MV Decel Time: 170.00 E/A: 1.00 E'Lateral: 5.98 E'Medial: 4.79 E/E' Med: 15.50 E/E' Lat: 12.40 PHT: 50.00 MVA PHT: 4.40 Decel [place]: 4.37 Aortic Valve AoV Pk Arnold: 1.03 AoV Mn Arnold: 0.82 AoV VTI: 0.21 AoV Pk Grad: 4.00 Aov Mn Grad: 3.00 JAIMIE Cont.VTI: 2.87 LVOT LVOT Pk Arnold: 0.99 LVOT Mn Arnold: 0.62 LVOT VTI: 0.19 LVOT Pk Grad: 4.00 LVOT Mn Grad: 2.00 LVOT Diam: 2.00 LVOT Area: 3.14 Diastolic Function MV Pk E: 0.74 MV Pk A: 0.78 E/A: 1.00 E'Medial: 4.79 E/E' Med: 15.50 E' Laterial: 5.98 E/E' Lat: 12.40 Right Ventricle TAPSE (mm): 17.30 TVS' Arnold: 10.10 Tricuspid Valve RA Press: 3.00 Great Vessels Aorta Sinus of Valsalva: 3.02 2.0-3.[address] [place]: 2.17 1.7-3.4 cm Ao Asc: 2.80 2.1-3.4 cm Updated in Other Vendor System with Status of Final Tariq Fu MD electronically signed on 07/29/2022 3:20:38 PM with status of Final
== END ==
LOC: HO.CARD 15:55
PROVIDERS: PCP Internal Medicine; Visit Provider Student in an Organized Health Care Education/Training Program
DX: R06.02 Shortness of breath (principal)
CPT/HCPCS: 93306; 93356

== ENCOUNTER → 2022-08-21 13:58 | Outpatient (BNVA) | payer OTHER, SELFPAY | PROVIDERS: PCP Internal Medicine; Visit Provider Student in an Organized Health Care Education/Training Program | DX: M25.542 Pain in joints of left hand (principal); R06.02 Shortness of breath | CPT/HCPCS: 99212 ==

== ENCOUNTER 2022-09-01 07:26 | Outpatient (REF) | payer OTHER, SELFPAY ==
--- NOTE | ~2022-09-01 | MM_ITS ---
EXAMINATION: MM DIAGNOSTIC DIGITAL BREAST TOMOSYNTHESIS, BILATERAL US DIAGNOSTIC ULTRASOUND BREAST, RIGHT CLINICAL INFORMATION: Due for yearly. Follow-up smooth oval nodularity 3:00 left breast likely cyst on prior ultrasound. At time of appointment, patient also notes nodularity right breast upper outer quadrant with pain for approximately 6 weeks. No discharge. Family history breast cancer, sister. The lifetime risk of breast cancer based on the Tyrer-Cuzick Model is 15%. COMPARISON: Mammography: 03/11/2022, 09/10/2021, 08/28/2021 (BI-RADS 0), 04/06/2020, 10/25/2018, ultrasound left breast 09/10/2021, 03/11/2022. TECHNIQUE: Digital breast tomosynthesis is performed in both the craniocaudal and mediolateral oblique views along with computer-aided detection (CAD). Synthesized 2D images are generated from the tomosynthesis. Ultrasound right breast is targeted to the areas of clinical concern outer and upper right breast. Patient is able to point to the areas at time of imaging. Grayscale imaging and color Doppler are performed without and with harmonics. FINDINGS: There are scattered areas of fibroglandular density (ACR BI-RADS breast composition Category b). Nodularity left breast, mid 3:00 and mid to posterior 3:00 are both decreased. The right breast appears similar to prior studies. There is no developing density or architectural abnormality. No abnormal calcifications. There is no skin thickening or coarsening of the Alfredito's ligaments. The axilla are unremarkable. Ultrasound demonstrates no cystic or solid mass, architectural abnormality, or focal duct ectasia. No skin thickening or edema tracking in soft tissue planes. No hyperemia. Results are discussed with the patient at time of visit. Left breast will be reassessed at diagnostic exam in 12 months to complete surveillance of the nodularity. Right breast symptoms may be managed based on clinical impression. If there is still clinically palpable concern, surgical consult may be considered for further assessment. MM/MM tomosynthesis diagnostic BI IMPRESSION: -Nodularity outer left breast slightly decreased. No suspicious changes. -No mammographic evidence of malignancy or inflammatory changes. -Unremarkable right breast ultrasound. ASSESSMENT: BI-RADS 3: Probably Benign RECOMMENDATION: 1. Patient's right breast symptoms should be managed based on the clinical impression. If clinically indicated, further evaluation may be considered with surgical consult. Decision to proceed with biopsy should be based on clinical grounds and degree of clinical concern. 2. Otherwise, routine annual screening mammography. This patient's information was entered into a reminder system with a target due date for their next mammogram.
== END 2022-09-01 07:27 | disposition home or self-care (01) ==
LOC: HO.MAMMO 07:26
PROVIDERS: PCP Internal Medicine; Visit Provider Internal Medicine
DX: N64.4 Mastodynia (principal); N63.11 Unspecified lump in the right breast, upper outer quadrant
CPT/HCPCS: 76642; 77062; 77066

== ENCOUNTER → 2022-10-05 14:52 | Outpatient (BNVA) | payer OTHER, SELFPAY | PROVIDERS: PCP Internal Medicine; Referring Provider Internal Medicine; Visit Provider Internal Medicine Cardiovascular Disease | DX: I20.8 Other forms of angina pectoris (principal) | CPT/HCPCS: 93005; 99202 ==

== ENCOUNTER 2022-10-09 08:36 | Outpatient (REF) | payer OTHER, SELFPAY ==
[2022-10-09 10:06] LABS: Prothrombin Time 11.5 SEC (10.0-13.1)
[2022-10-09 10:59] LABS: TSH reflex Free T4 4.45 uIU/mL (0.32-4.0)
[2022-10-09 12:11] LABS: Free T4 (Free Thyroxine) 0.86 ng/dL (0.71-1.85)
[2022-10-09 12:28] LABS: HBS Num1 0.07 mIU/mL (0-7.99); HBc Num1 0.07 S/CO (0.00-0.79); HBsAGNum1 0.28 S/CO (0.00-0.99); Hepatitis A Antibody IgM 0.21 Index (0-0.79); Hepatitis B Core Antibody Nonreactive (Nonreactive); Hepatitis B Surface Antigen Negative (Negative); ~HepC Num1 0.12 S/CO (0.00-0.79); ~Hepatitis A Antibody IgM Nonreactive (Nonreactive); ~Hepatitis B Surface Antibody NONREACTIVE (Nonreactive); ~Hepatitis C Antibody Nonreactive (Nonreactive)
[2022-10-09 12:53] LABS: Alanine Aminotransferase 29 U/L (0-31); Albumin Level 4.5 g/dL (3.5-5.0); Alkaline Phosphatase 84 U/L (39-117); Anion Gap 16 (12-20); Aspartate Amino Transferase 20 U/L (5-31); Bilirubin Total 0.6 mg/dL (0.0-1.0); Blood Urea Nitrogen 9 mg/dL (9-16); C Reactive Protein 0.32 mg/dL (< or = 0.50); Calcium 9.7 mg/dL (8.4-10.2); Carbon Dioxide 24 mmol/L (22-29); Chloride 103 mmol/L (96-108); Estimated Glomerular Filt Rate > 60; Glucose Random 119 mg/dL (60-115); Potassium 4.3 mmol/L (3.3-5.1); Sodium 139 mmol/L (135-145); Total Protein 7.2 g/dL (6.5-8.0)
[2022-10-12 15:28] LABS: Anti Nuclear Antibody Screen NEGATIVE (NEGATIVE)
[2022-10-15 14:18] LABS: PTT (LAC) Screen 31 sec (<=40)
== END 2022-10-09 08:37 | disposition home or self-care (01) ==
LOC: HO.MAMMO 08:36
PROVIDERS: Internal Medicine Cardiovascular Disease; Student in an Organized Health Care Education/Training Program; PCP Internal Medicine; Visit Provider Internal Medicine
DX: Z11.59 Encounter for screening for other viral diseases (principal); M06.9 Rheumatoid arthritis, unspecified; R53.83 Other fatigue; I20.8 Other forms of angina pectoris
CPT/HCPCS: 36415; 80053; 82550; 84439; 84443; 85597; 85610; 85613; 85730; 86038; 86039; 86140; 86704; 86706; 86709; 86803; 87340

== ENCOUNTER 2022-10-13 13:46 | Outpatient (REF) | payer OTHER, SELFPAY ==
[2022-10-13 14:18] LABS: MANUAL DIFF FLAG NO
[2022-10-13 14:40] LABS: Basophils Percent Auto 0.6 % (0-2); Eosinophils Absolute Auto 0.2 X10*3/uL (0.0-0.4); Eosinophils Percent Auto 2.1 % (0-4); Hematocrit 38.6 % (37.0-47.0); Hemoglobin 13.2 g/dl (12.0-16.0); Imm Gran Abs Auto 0.03 X10*3/uL (0.00-0.03); Imm Gran Pct Auto 0.4 % (0.0-0.4); Lymphocytes Absolute Auto 2.3 X10*3/uL (1.2-4.9); Lymphocytes Percent Auto 32.3 % (20-40); Mean Corpuscular HGB Conc 34.2 g/dl (31.0-35.0); Mean Corpuscular Hemoglobin 29.5 pg (27.0-33.0); Mean Corpuscular Volume 86.2 fL (80.0-98.0); Mean Platelet Volume 11.5 fL (9.4-12.3); Monocytes Absolute Auto 0.5 X10*3/uL (0.1-1.2); Monocytes Percent Auto 7.5 % (2-11); Neutrophils Percent Auto 57.1 % (45-73); Platelet Count 338 X10*3/uL (160-400); Red Blood Count 4.48 X10*6/uL (4.20-5.50); Red Cell Distribution Width 13.6 % (11.0-16.0); White Blood Count 7.1 X10*3/uL (4.8-10.8)
[2022-10-13 14:56] LABS: Estimated Average Glucose 134 mg/dL; Hemoglobin A1c % 6.3 %
[2022-10-13 15:07] LABS: Anion Gap 13 (12-20); Blood Urea Nitrogen 14 mg/dL (9-16); Calcium 9.2 mg/dL (8.4-10.2); Carbon Dioxide 26 mmol/L (22-29); Chloride 108 mmol/L (96-108); Estimated Glomerular Filt Rate > 60; Glucose Random 120 mg/dL (60-115); Potassium 4.5 mmol/L (3.3-5.1); Sodium 142 mmol/L (135-145)
[2022-10-13 15:21] LABS: Erythrocyte Sedimentation Rate 16 MM/HR (0-20)
[2022-10-13 15:22] LABS: B Type Natriuretic Peptide 19 pg/mL (<100)
[2022-10-13 16:32] LABS: Appearance Urine Clear; Color Urine Yellow; Glucose Urine UA Negative (Negative); Leukocyte Esterase Urine Small (1+) (Negative); Nitrite Urine Negative (Negative); Specific Gravity - Urine 1.025 (1.005-1.025); UMIC TRIGGER UA YES; Urine Blood Negative (Negative); Urine Ketones Negative (Negative); Urine Protein Negative (Neg-Trace)
[2022-10-13 16:34] LABS: Bacteria Urine 1+ (None Seen); Hyaline Casts Urine 0-2 /LPF (0-2); RBC Urine 0-2 /HPF (0-2)
[2022-10-13 16:41] LABS: Creatinine Urine 103.33 mg/dL; Protein/Creatinine Ratio, Ur 0.09 (<0.2); Total Protein Urine Random 9 mg/dL (<12)
[2022-10-14 15:09] LABS: IgA 259 mg/dL (47-310); IgG 1043 mg/dL (600-1640); IgM 85 mg/dL (50-300)
[2022-10-15 09:28] LABS: Complement C3 144 mg/dL (83-193)
[2022-10-15 13:33] LABS: Anti DNA DS Antibody <1 IU/mL; Antibody to SS-A Antigen <1.0 NEG AI (<1.0 NEG); Antibody to SS-B Antigen <1.0 NEG AI (<1.0 NEG); Myeloperoxidase Antibody <1.0 AI; Proteinase 3 PR3 Antibodies <1.0 AI; SM/Ribonucleoprotein Ab <1.0 NEG AI (<1.0 NEG); Smith Protein <1.0 NEG AI (<1.0 NEG)
[2022-10-15 19:18] LABS: Prot Elec - Albumin 4.4 g/dL (3.8-4.8); Prot Elec - Alpha1 0.3 g/dL (0.2-0.3); Prot Elec - Alpha2 0.8 g/dL (0.5-0.9); Prot Elec - Beta 1 0.5 g/dL (0.4-0.6); Prot Elec - Beta 2 0.4 g/dL (0.2-0.5); Prot Elec - Gamma 0.9 g/dL (0.8-1.7); Prot Elec - Total Protein 7.3 g/dL (6.1-8.1)
[2022-10-17 05:13] LABS: Angiotensin Converting Enzyme 26 U/L (9-67); Lysozyme, Serum 6.7 mcg/mL (5.0-11.0)
[2022-10-17 12:28] LABS: DNAds, Crithidia Antibody Negative (Negative)
[2022-10-21 04:04] LABS: Beta-2 Glycoprotein IgA <2.0 U/mL (<20.0); Beta-2 Glycoprotein IgG <2.0 U/mL (<20.0); Beta-2 Glycoprotein IgM <2.0 U/mL (<20.0)
[2022-10-25 16:08] LABS: Cardiolipin IgG Ab <2.0 GPL-U/mL (<20.0); Cardiolipin IgM Ab <2.0 MPL-U/mL (<20.0)
== END 2022-10-13 13:47 | disposition home or self-care (01) ==
LOC: HO.LAB 13:46
PROVIDERS: Student in an Organized Health Care Education/Training Program; PCP Internal Medicine; Visit Provider Internal Medicine Cardiovascular Disease
DX: Z13.1 Encounter for screening for diabetes mellitus (principal); I20.8 Other forms of angina pectoris; M06.9 Rheumatoid arthritis, unspecified; J84.9 Interstitial pulmonary disease, unspecified; R06.02 Shortness of breath; D86.9 Sarcoidosis, unspecified; M25.50 Pain in unspecified joint; R07.9 Chest pain, unspecified
CPT/HCPCS: 36415; 80048; 81001; 82164; 82784; 83036; 83516; 83520; 83880; 84156; 84165; 84182; 85025; 85027; 85549; 85652; 86021; 86146; 86147; 86160; 86200; 86225; 86235; 86255; 86334; 86431

== ENCOUNTER → 2022-11-03 13:24 | Outpatient (BNVA) | payer OTHER, SELFPAY | PROVIDERS: PCP Internal Medicine; Referring Provider Internal Medicine; Visit Provider Nurse Practitioner Family | DX: I42.9 Cardiomyopathy, unspecified (principal); I20.8 Other forms of angina pectoris; I44.7 Left bundle-branch block, unspecified; Z98.890 Other specified postprocedural states | CPT/HCPCS: 99212 ==

== ENCOUNTER → 2022-12-23 08:24 | Outpatient (BNVA) | payer OTHER, SELFPAY | PROVIDERS: PCP Internal Medicine; Visit Provider Student in an Organized Health Care Education/Training Program | DX: M25.542 Pain in joints of left hand (principal) | CPT/HCPCS: 99212 ==

== ENCOUNTER → 2023-04-13 09:10 | Outpatient (REF) | payer OTHER, SELFPAY ==
--- NOTE | 2023-04-13 09:14 | CA_ITS ---
Transthoracic Echocardiogram Patient (Last, First, Middle): Nuha Garcia, Gender: Female Date of : 1970 Age: 52 Procedure Date: 04/13/2023 Procedure Type: Transthoracic Echocardiogram Location: OP Height: 149.86 cm Weight: 54.43 kg BSA: 1.48 m2 Heart Rate: 72 bpm BP: 104 / 52 mmHg Car Restorer: TO Referring MD: Chelsy Ayon INVASIVE MANAGERCarlos Symptoms: I42.9 - Cardiomyopathy, unspecified Study Quality: Adequate/limited study ordered ECG Rhythm: Sinus Conclusions: - The left ventricular systolic function is mildly decreased. The calculated ejection fraction is 49% by biplane method. - The basal inferior, apical septum, basal inferoseptal, and mid anteroseptal segments are hypokinetic. Findings Left Ventricle Normal left ventricular cavity size. There is normal left ventricular wall thickness. The left ventricular systolic function is mildly decreased. The calculated ejection fraction is 49% by biplane method. There is evidence of regional wall motion abnormalities. LV peak GLS -16.2%. Wall Motion Rest Echo Findings The basal inferior, apical septum, basal inferoseptal, and mid anteroseptal segments are hypokinetic. Venous The inferior vena cava is normal in size and collapses greater than 50% with inspiration. Prior Study Comparison No significant change compared to prior study dated: 07/28/2022. Measurements 2D Linear Measurements IVSd: 0.86 0.6-0.9/0.6-1.0 cm LVIDd: 4.27 3.9-5.3/4.2-5.9 cm LVIDd Index: 2.89 2.4-3.2/2.2-3.1 cm/m2 LVIDs: 3.25 2.0-3.6 cm LVPWd: 0.78 0.7-1.1 cm LV Mass: 133.71 67-162/88-224 g LV Mass Index: 90.35 43-95/49-115 g/m2 LVOT Diam: 2.00 3.0+(-)1.3 cm 2D Systolic Function EF 4C: 42.50 >55% EF 2C: 52.90 >55% EF BiP: 49.30 >55% LVOT LVOT Pk Arnold: 0.91 LVOT Mn Arnold: 0.63 LVOT VTI: 0.17 LVOT Pk Grad: 3.00 LVOT Mn Grad: 2.00 LVOT Diam: 2.00 LVOT Area: 3.14 Tricuspid Valve RA Press: 3.00 Updated in Other Vendor System with Status of Final Erlin Mccann MD electronically signed on 04/14/2023 10:59:37 AM with status of Final
== END ==
LOC: HO.CARD 09:10
PROVIDERS: PCP Internal Medicine; Visit Provider Nurse Practitioner Family
DX: I42.9 Cardiomyopathy, unspecified (principal)
CPT/HCPCS: 93308; 93356

== ENCOUNTER → 2023-04-13 09:14 | Outpatient (BNV) | payer OTHER, SELFPAY | PROVIDERS: PCP Internal Medicine; Visit Provider Internal Medicine | DX: I42.9 Cardiomyopathy, unspecified (principal) | CPT/HCPCS: 93308 ==

== ENCOUNTER 2023-06-23 13:50 | Outpatient (REF) | payer OTHER, SELFPAY ==
[2023-06-23 14:08] LABS: MANUAL DIFF FLAG NO
[2023-06-23 14:28] LABS: Basophils Percent Auto 0.4 % (0-2); Eosinophils Absolute Auto 0.1 X10*3/uL (0.0-0.4); Hematocrit 42.7 % (37.0-47.0); Hemoglobin 14.1 g/dl (12.0-16.0); Imm Gran Abs Auto 0.03 X10*3/uL (0.00-0.03); Imm Gran Pct Auto 0.4 % (0.0-0.4); Lymphocytes Absolute Auto 1.8 X10*3/uL (1.2-4.9); Lymphocytes Percent Auto 26.5 % (20-40); Mean Corpuscular Hemoglobin 28.3 pg (27.0-33.0); Mean Corpuscular Volume 85.6 fL (80.0-98.0); Mean Platelet Volume 10.8 fL (9.4-12.3); Monocytes Absolute Auto 0.5 X10*3/uL (0.1-1.2); Neutrophils Absolute Auto 4.3 x10*3/uL (2.0-8.3); Neutrophils Percent Auto 63.7 % (45-73); Platelet Count 327 X10*3/uL (160-400); Red Blood Count 4.99 X10*6/uL (4.20-5.50); Red Cell Distribution Width 14.3 % (11.0-16.0); White Blood Count 6.8 X10*3/uL (4.8-10.8)
[2023-06-23 15:08] LABS: Alanine Aminotransferase 33 U/L (0-31); Albumin Level 4.5 g/dL (3.5-5.0); Alkaline Phosphatase 67 U/L (39-117); Anion Gap 11 (12-20); Aspartate Amino Transferase 22 U/L (5-31); Bilirubin Total 0.4 mg/dL (0.0-1.0); Blood Urea Nitrogen 10 mg/dL (9-16); Carbon Dioxide 28 mmol/L (22-29); Chloride 105 mmol/L (96-108); Estimated Glomerular Filt Rate > 60; Glucose Random 119 mg/dL (60-115); Potassium 3.8 mmol/L (3.3-5.1); Sodium 140 mmol/L (135-145); Total Protein 7.6 g/dL (6.5-8.0)
[2023-06-23 15:17] LABS: T4 Thyroxine 9.5 ug/dL (4.5-12.0); Thyroid Stimulating Hormone 2.27 uIU/mL (0.32-4.0)
[2023-06-24 06:47] LABS: Triiodothyronine T3 Total 112 ng/dL (76-181)
== END 2023-06-23 13:51 | disposition home or self-care (01) ==
LOC: HO.LAB 13:50
PROVIDERS: PCP Internal Medicine; Visit Provider Psychiatry & Neurology Psychiatry
DX: E03.9 Hypothyroidism, unspecified (principal)
CPT/HCPCS: 36415; 80053; 84436; 84443; 84480; 85025

== ENCOUNTER 2023-09-03 14:31 | Outpatient (REF) | payer OTHER, SELFPAY ==
--- NOTE | ~2023-09-03 | US_ITS ---
EXAMINATION: MM DIAGNOSTIC DIGITAL BREAST TOMOSYNTHESIS, BILATERAL US BREAST LIMITED, BILATERAL MAMMOGRAPHY: CLINICAL INFORMATION: 52-year-old female due for bilateral screening. Also complaining of breast pain left breast lower inner quadrant and 12:00 region, and right breast upper outer quadrant. History of benign cyst left breast 3:00 stable since 08/28/2021. COMPARISON: Mammography: 09/01/2022, 03/11/2022, 09/10/2021, 08/28/2021, 04/06/2020, 10/25/2018, ultrasound left breast 09/10/2021, 03/11/2022. TECHNIQUE: Digital breast tomosynthesis is performed in both the craniocaudal and mediolateral oblique views along with computer-aided detection (CAD). Synthesized 2D images are generated from the tomosynthesis. FINDINGS: The breasts are heterogeneously dense, which may obscure small masses (ACR BI-RADS breast composition Category c). There is redemonstration of a stable 7 mm simple cyst in the 3:00 axis of the posterior left breast, unchanged and benign. In the 8:00 axis of the left breast, there is a smooth isodense oval mass measuring 5 mm, not previously described. This is probably benign. This will be interrogated by ultrasound. There is right greater than left retroareolar duct ectasia present. There are no suspicious masses, suspicious grouped calcifications, or areas of architectural distortion in either breast. The parenchymal pattern is stable from prior exams. Areas of breast pain bilaterally have been marked by the technologist as directed by the patient. No mammographic correlates to the regions of breast pain in the left breast lower inner quadrant and 12:00 axes, and right breast upper outer quadrant are identified. We will evaluate these regions with ultrasound. No skin or axillary abnormality is appreciated. ULTRASOUND: CLINICAL INFORMATION: As above. COMPARISON: None TECHNIQUE: Targeted sonographic evaluation bilateral breasts was performed using a high frequency linear transducer. Right breast was scanned from the 9:00 to the 1:00 axis to include the regions of breast pain, and the left breast was scanned from the 6:00 to the 1:00 axis, to include the regions of breast pain. Selected archived documentation. FINDINGS: RIGHT BREAST: -In the 9-10 o'clock axis, 2 cm from the nipple, there is a slightly irregular lobulated complex cyst or small mass with a small amount of through transmission, a scant amount of internal color flow, measuring 0.6 x 0.6 x 0.4 cm. This may represent a small fibroadenoma, small papilloma, or complex cyst. Questionable correlation present seen in the anterior right breast tomographic images. Six-month interval follow-up targeted right breast ultrasound recommended. -Mild duct ectasia present. -Otherwise, no ultrasonographic abnormality identified in the 9:00 to 1:00 axes to explain breast pain. LEFT BREAST: -In the 8:00 axis, 3 cm from the nipple, there is a 5 x 4 x 3 mm mildly complicated cyst, which appears to correlate with the small oval circumscribed mass seen in the left breast on mammography. This is probably benign, and six-month interval follow-up targeted left breast ultrasound recommended to ensure stability. -Mild duct ectasia present. -Otherwise, no ultrasonographic abnormality identified in the 6:00-1:00 axes to explain breast pain. US/US breast BI limited mamm only IMPRESSION: There are no findings in either breast suspicious for malignancy. In the right breast 9-10 o'clock axis, 2 cm from the nipple, there is a 6 x 6 x 4 mm small lobular mass versus complex cyst as described above, probably benign. Six-month interval follow up targeted right breast ultrasound recommended. In the left breast at the 8:00 axis, 3 cm from the nipple, there is a mildly complicated 5 x 4 x 3 mm cyst not previously noted and probably benign as well. Six-month interval follow-up targeted left breast ultrasound recommended. Unchanged 7 mm simple cyst in the left breast 3:00 axis. Aside from the right breast 9-10 o'clock axis finding, no additional mammographic or sonographic abnormality is present in either breast in the regions of breast pain. Recommend clinical management. OVERALL ASSESSMENT: Mammography: BI-RADS 3 - Probably benign finding(s) - 6 month follow-up suggested Ultrasound: BI-RADS 3 - Probably benign finding(s) - 6 month follow-up suggested RECOMMENDATION: 6 Month F/U Results were provided to the patient at time of visit by the technologist. This patient's information was entered into a reminder system with a target due date for their next mammogram.
== END 2023-09-03 14:32 | disposition home or self-care (01) ==
LOC: HO.MAMMO 14:31
PROVIDERS: PCP Internal Medicine; Visit Provider Internal Medicine
DX: N63.25 Unspecified lump in the left breast, overlapping quadrants (principal)
CPT/HCPCS: 76642; 77062; 77066

== ENCOUNTER → 2023-09-03 15:00 | Outpatient (BNV) | payer OTHER, SELFPAY | PROVIDERS: PCP Internal Medicine; Visit Provider Radiology Diagnostic Radiology | DX: Z12.31 Encounter for screening mammogram for malignant neoplasm of breast (principal); N64.4 Mastodynia | CPT/HCPCS: 76642; 77063; 77067 ==

== ENCOUNTER 2023-12-02 11:33 | Outpatient (REF) | payer OTHER, SELFPAY ==
[2023-12-02 14:21] LABS: Free T4 (Free Thyroxine) 1.09 ng/dL (0.71-1.85); Vitamin D 25-OH Total 21.9 ng/mL (>30)
[2023-12-02 14:37] LABS: Folate 13.4 ng/mL (> or = 4.0); Vitamin B12 468 pg/mL (200-900)
[2023-12-03 08:25] LABS: Syphilis Screen Nonreactive (Nonreactive)
[2023-12-03 18:23] LABS: Homocysteine 4.1 umol/L (<10.4)
[2023-12-07 10:03] LABS: Methylmalonic Acid 198 nmol/L (87-318)
== END 2023-12-02 11:34 | disposition home or self-care (01) ==
LOC: HO.LAB 11:33
PROVIDERS: Visit Provider Physician Assistant Medical
DX: D51.0 Vitamin B12 deficiency anemia due to intrinsic factor deficiency (principal); E55.9 Vitamin D deficiency, unspecified; A53.9 Syphilis, unspecified
CPT/HCPCS: 36415; 82306; 82607; 82746; 83090; 83921; 84439; 86780

== ENCOUNTER 2024-03-10 09:44 | Outpatient (REF) | payer OTHER, SELFPAY ==
[2024-03-10 09:57] LABS: MANUAL DIFF FLAG NO
[2024-03-10 10:23] LABS: Basophils Percent Auto 0.7 % (0-2); Eosinophils Absolute Auto 0.2 X10*3/uL (0.0-0.4); Eosinophils Percent Auto 3.7 % (0-4); Hemoglobin 13.4 g/dl (12.0-16.0); Imm Gran Abs Auto 0.01 X10*3/uL (0.00-0.03); Imm Gran Pct Auto 0.2 % (0.0-0.4); Lymphocytes Absolute Auto 1.3 X10*3/uL (1.2-4.9); Lymphocytes Percent Auto 29.3 % (20-40); Mean Corpuscular HGB Conc 33.5 g/dl (31.0-35.0); Mean Corpuscular Hemoglobin 29.3 pg (27.0-33.0); Mean Corpuscular Volume 87.3 fL (80.0-98.0); Mean Platelet Volume 10.9 fL (9.4-12.3); Monocytes Absolute Auto 0.5 X10*3/uL (0.1-1.2); Monocytes Percent Auto 11.8 % (2-11); Neutrophils Absolute Auto 2.4 x10*3/uL (2.0-8.3); Neutrophils Percent Auto 54.3 % (45-73); Platelet Count 265 X10*3/uL (160-400); Red Blood Count 4.58 X10*6/uL (4.20-5.50); Red Cell Distribution Width 13.9 % (11.0-16.0); White Blood Count 4.3 X10*3/uL (4.8-10.8)
[2024-03-10 11:01] LABS: Estimated Average Glucose 134 mg/dL; Hemoglobin A1c % 6.3 % (<6.0)
[2024-03-10 11:07] LABS: Alanine Aminotransferase 50 U/L (0-31); Albumin Level 4.2 g/dL (3.5-5.0); Alkaline Phosphatase 89 U/L (39-117); Anion Gap 11 (12-20); Aspartate Amino Transferase 39 U/L (5-31); Bilirubin Total 0.3 mg/dL (0.0-1.0); Blood Urea Nitrogen 5 mg/dL (9-16); Calcium 9.7 mg/dL (8.4-10.2); Carbon Dioxide 28 mmol/L (22-29); Chloride 108 mmol/L (96-108); Cholesterol 131 mg/dL (<200); Estimated Glomerular Filt Rate > 60; Glucose Random 142 mg/dL (60-115); HDL Cholesterol 38 mg/dL (>40); LDL Cholesterol Calculated 71 mg/dL (<100); Sodium 143 mmol/L (135-145); Total Protein 6.9 g/dL (6.5-8.0); Triglycerides 112 mg/dL (<150)
[2024-03-10 11:23] LABS: Thyroid Stimulating Hormone 0.58 uIU/mL (0.32-4.0)
[2024-03-10 11:50] LABS: Creatinine Urine 86.58 mg/dL; Microalbumin Urine < 5.0 mg/L
== END 2024-03-10 09:45 | disposition home or self-care (01) ==
LOC: HO.LAB 09:44
PROVIDERS: PCP Internal Medicine; Visit Provider Internal Medicine
DX: E11.9 Type 2 diabetes mellitus without complications (principal); F32.3 Major depressive disorder, single episode, severe with psychotic features; I43 Cardiomyopathy in diseases classified elsewhere; R00.2 Palpitations
CPT/HCPCS: 36415; 80053; 80061; 82570; 83036; 84443; 85025

== ENCOUNTER 2024-07-05 10:47 | Outpatient (REF) | payer OTHER, SELFPAY ==
--- NOTE | ~2024-07-05 | US_ITS ---
EXAMINATION: US DIAGNOSTIC ULTRASOUND BREAST, BILATERAL CLINICAL INFORMATION: 6 month follow-up for bilateral solid masses versus complicated cyst on ultrasound.. COMPARISON: Comparison is made with relevant prior imaging. TECHNIQUE: Ultrasound of the breast is performed with real-time qiu scale imaging and color Doppler. FINDINGS: Targeted color Doppler ultrasound scanning in the left breast at 8:00 3 cm from nipple again demonstrates a hypoechoic oval probable minimally complicated cyst versus solid mass measuring 4 x 4 x 3 mm. Unchanged from prior ultrasound. There is no internal vascular flow. Targeted color Doppler ultrasound scanning at 9-10 o'clock 2 cm simple nipple again demonstrates a hypoechoic oval circumscribed solid mass versus complicated cyst measuring 6 x 6 x 4 mm. There is no internal vascular flow. This is not significantly changed from prior ultrasound. Results are discussed with the patient at time of visit. US/US breast BI limited mamm only IMPRESSION: Solid masses versus complicated cysts bilateral breasts 8:00 3 cm from the nipple left breast 9-10 o'clock 2 cm from nipple in the right breast. Recommend 6 month follow-up ultrasound for further evaluation of stability to demonstrate 1 year of stability. ASSESSMENT: BI-RADS 3: Probably Benign RECOMMENDATION: Diagnostic ultrasound in 6 months. This patient's information was entered into a reminder system with a target due date for their next mammogram. Electronically signed by: Katharina Queazda DO 07/05/2024 11:56 AM EST
--- OUTSIDE RECORDS SUMMARY | 2024-07-11 17:46 | XMS_ITS | Data Portability ---
Author Organization [facility] [employer] Address [address] [place] [address] Care Team Providers Care Asset Protection Assistant Name Role Phone FTAOUMATA TORRES Referring Provider CYRUS OCONNOR Primary Care Provider Assessment Encounter Date Assessment Date Assessment LastModified by Organization Details LastModified Time 11/16/2023 11/16/2023 IMPRESSION: Mild to moderate cognitive impairment, possible Alzheimer's disease, differential includes atypical Parkinson's disease (which we did not discuss today). Neurologic examination is notable for cognitive impairment with particular difficulties with time, memory and at times comprehension (in [place]ican). Deep tendon reflexes are unusually brisk, particularly the patella and are frequently self elicited from slight tap of the distal quadriceps by the patient herself. History is notable for feeling disoriented when going to familiar places when driving. She has been managing medication with pillbox and calendar and one of her daughters assists her with finances. We will begin evaluation with further assessment of potential reversible causes of memory loss to include laboratory evaluation of B12, folate, methylmalonic acid, homocystine, thyroid has recently been reported normal and therefore, we will check only a free T4 and defer TSH, we will check vitamin D level and RPR (she was very anxious about this final test wondering what in her history might make me suspect that she needed screening for a sexually transmitted infection: I assured her that I check everyone that I see during their initial evaluation for memory loss since it is treatable and can affect the brain after which she no longer appears anxious and was agreeable). We will also obtain an MRI of her brain to further evaluation of her brain parenchyma to assess for any suggestion of vascular abnormalities or of a prior hemorrhage in anticipation of the discussions on potential for lecanemab. (We may also discuss possibility of trial of donepezil at follow-up -we will need improved medication monitoring in place). To the same end, we will also request a copy of recent MoCA of 17 to avoid repetition. Her daughter filled out the functional assessment questionnaire after her visit today which is scanned into the record separately . (Total score of 19). Medications per patient: quetiapine 100 mg, levothyroxine 100mcg, sertraline 100 mg, aspirin 81 mg, 81 mg, omeprazole 20 mg, atorvastatin 80 mg, metoprolol, ezetimibe 10 mg, eszopiclone 1 mg PLAN: Nuhaalphonso Garcia November 16, 2023 I expect you will hear from them but if you do not hear in ~ 1 week then please [facility] ([facility]) [address] [place] [address] Ph. , Please go to the laboratory at your convenience for the following labs (please go at least 2 weeks before follow-up) [facility] (Lab) [address] [place] [phone] Ph. , ? ? Check vitamin B12, serum ? ? Check folate, serum ? ? Check mma (methylmalonic acid), serum ? ? Check homocysteine, serum or plasma ? ? Check T4, free, serum ? ? Check vitamin D, 25-hydroxy, total, serum ? ? Check RPR (rapid plasma reagin), serum Follow-up in ~4, possibly 6 weeks (after brain MRI) to go over laboratories and MRI results and to discuss next steps Discussed with Dr. Obrien, impression and plan developed with him [place] [id number] Not available 11/16/2023 19:47:46 Plan of Treatment Reminders Order Date Submit Date Provider Last Modified By Organization Details Last Modified Time Details Appointments FOLLOW UP EXT 2024 10:30A Avtar Obrien MD PhD Not available Not available Not available Lab vitamin B12, serum 2023 024 [email or web address] [facility] (Lab), [address] [place] [address], [id number], 01/10/2024 16:33:19 folate, serum [address] (Lab), [address] [place] [address], [id number], 01/10/2024 16:33:19 mma (methylma lonic acid), serum [address] [place] [address] (Lab), [address] [place] [address], [id number], 01/10/2024 16:33:20 homocyste ine, serum or plasma [address] (Lab), [address] [place] [address], [id number], 01/10/2024 16:33:20 T4, free, serum - E07.[address] (Lab), [address] [place] [address], [id number], 01/10/2024 16:33:20 vitamin D, 25-hydrox y, total, serum - E55.[address] [place] [address] (Lab), [address] [place] [address], [id number], 01/10/2024 16:33:20 RPR (rapid plasma reagin), serum - A53.[address] [place] [address] (Lab), [address] [place] [address], [id number], 01/10/2024 16:33:20 Referral None recorded. Procedures None recorded. Surgeries None recorded. Imaging MRI, brain, w/o contrast - For evaluatio n of memory loss [address] [facility] ([facility] [address], [place], [address], 12/09/2023 10:36:32 Medication Orders None recorded. Patient TargetsNo targets recorded. Patient Instructions Encounter Date Encounter Id Patient Instructions Last Modified By Organization Details Last Modified Time 11/16/2023 [id number] Discussion acros s issues of diagnoses and management and same day associated chart review and management greater than 50% greater than 90 minutes ortega Not available 11/16/2023 19:51:04 Reason for Referral None Reported. Results Created Date Observation Date Name Description Value Unit Range Abnormal Flag Note LastModifiedBy Organization Detail LastModifiedTime 12/06/19 24 12/03/2023 MRI, brain + brain stem, w/o contr ast [facility] [place] field Access ion Number : [id number] Patien t Name: Nuha Garcia Record Number : [id number] Date of : 1970 Date of Exam: 2023 Referr ing Physic josef: Em [facility] [address] [place] [address] Exam: MR Brain (C-) CPT 18426 Room Descri ption: [facility] Espr 1.5 MRI of the brain withou t contra st. HISTOR Y: Halluc inatio ns. COMPAR LYUDMILA: None. FINDIN GS: The ventri cles, cister ns and sulci are normal . No hydroc ephalu s. There is no acute intrac ranial hemorr al, tumor or infarc t. No white matter diseas e is seen. There are normal flow-v oids within major intrac ranial vessel s. There is minima l mucosa l thicke caden within right mastoi d air cells. IMPRES MARY: Normal brain. Electr onical ly Signed By: Bo vivas [facility] ([facility]) [address], [place], [address], 12/07/2023 08:55:27 Result Notes None recorded. Procedures Surgical History Date Name Laterality Status Provider Name and Address Organization Details Recorded Time 11/16/2023 DATA REVIEW completed EM CALVO PA-C [address] [facility] [place], [address], [facility] 11/16/2023 18:36:12 Imaging Results Imaging Date Name Status LastModified by Organiz ation Details LastModified Time 12/03/2023 MRI, brain + brain stem, w/o contrast completed [id number] [facility] ([facility]) [address], [place], [address], 12/07/2023 08:55:27 Procedure Notes None recorded. Medical Equipment None Reported. Allergies No known drug allergies Medications Name Sig Start Date Stop Date Status Note LastModified by Organization Details LastModified Time atorvastatin 80 mg tablet TAKE 1 TABLET BY MOUTH AT BEDTIME active Not Available Not Available No t Available metoprolol succinate ER 50 mg tablet,extended release 24 hr TAKE 1 TABLET BY MOUTH EVERY DAY active Not Available Not Available No t Available donepezil 10 mg tablet TAKE 1 TABLET BY MOUTH DAILY AT BEDTIME active Not Available Not Available No t Available sertraline 100 mg tablet TAKE 1 AND 1/2 TABLETS BY MOUTH DAILY active Not Available Not Available No t Available olanzapine 10 mg tablet TAKE 1 TABLET BY MOUTH AT BEDTIME active Not Available Not Available No t Available aspirin 81 mg tablet,delayed release TAKE 1 TABLET BY MOUTH DAILY active Not Available Not Available No t Available quetiapine 100 mg tablet TAKE 1 TABLET BY MOUTH AT BEDTIME active Not Available Not Available No t Available levothyroxine 100 mcg tablet TAKE 1 TABLET BY MOUTH DAILY active Not Available Not Available No t Available omeprazole 20 mg capsule,delayed release active Not Available Not Available Not Available aspirin 81 mg chewable tablet CHEW AND SWALLOW 1 TABLET BY MOUTH EVERY DAY active Not Available Not Available No t Available montelukast 10 mg tablet TAKE 1 TABLET BY MOUTH AT BEDTIME active Not Available Not Available No t Available olanzapine 15 mg tablet TAKE 1 TABLET BY MOUTH EVERY DAY AT BEDTIME active Not Available Not Available No t Available lisinopril 5 mg tablet TAKE 1 TABLET BY MOUTH EVERY DAY active Not Available Not Available No t Available fluticasone propionate 50 mcg/actuation nasal spray,suspensio n SPRAY 1 SPRAY INTO EACH NOSTRIL TWICE DAILY active Not Available Not Available No t Available lisinopril 2.5 mg tablet TAKE 1 TABLET BY MOUTH EVERY DAY active Not Available Not Available No t Available ezetimibe 10 mg tablet TAKE 1 TABLET BY MOUTH DAILY active Not Available Not Available No t Available eszopiclone 1 mg tablet TAKE 1 TABLET BY MOUTH AT BEDTIME active Not Available Not Available No t Available quetiapine 50 mg tablet TAKE 1 TABLET BY MOUTH AT NIGHT active Not Available Not Available No t Available Vitals None Recorded Social History None recorded. Functional Status None recorded. Mental Status None recorded. Family History Relationship Description Onset Age of this Age Resolved Age Notes LastModified by Organization Details LastModified Time Father No current problems or disability [email or web address] Not available 11/15 16:13:52 Mother No current problems or disability [email or web address] Not available 11/15 16:13:52 Medical History Condition Response Claustrophobia N Hospitalizations N Head Trauma/Injury N High Blood Pressure or Hypertension N Thyroid Problems N Brain Tumors N Depression Y Lung Disease N COPD or emphysema N Encephalitis N Vitamin B12 deficiency N PTSD N Heart Attack (ND) N Spine Problems N Obstructive Sleep Apnea N Alcoholism N Diabetes N Autoimmune disease N Bleeding Disorder N Arthritis Y Tuberculosis N Cerebral Palsy N Developmental Problems N Neck Problems N Cancer N Back Problems N Stroke N Asthma N Heartburn, acid reflux, GERD N Vitamin D Deficiency N Epilepsy/Seizures N Bipolar Disorder Y Sleep Disorder N Hepatitis N Aneurysm N Liver Disease N Heart Disease N Headaches N Fibromyalgia N High Cholesterol or Hyperlipidemia Y Osteoporosis N Kidney Disease N Gynecological HistoryNo gynecological history recorded. Obstetrics History GPAL:G 0 P 0 0 0 0 Past Encounters Encounter ID Performer Location Encounter Start Date Encounter Closed Date Diagnosis/Indication Diagnosis SNOMED-CT Code Diagnosis ICD10 Code [id number] Ti Obrien MD [facility] [address] [place] [address] [place] [address] 11/16/2023 13:51:26 11/22/2023 10:28:27 Mild neurocognitive disorder 991686294 G31.84 Alzheimer's disease 2692 9004 G30.1 Vitamin B1 2 deficiency anemia due to dietary causes 469998479 D51.0 Abnormal t hyroid hormone 842140721 R94.6 Vitamin D deficiency 347 15649 E55.9 Syphilis 85360957 A53.9 Health Concerns Section Related Observation LastModified by Organization Detai ls LastModified Time None Recorded Concern Status LastModified by Organization Details LastModified Time None Recorded Advance Directives Directive None Recorded Payers Encounter Date Sequence Insurance Name Policy Number Policy Morales Covered Member ID Morales Member ID Guarantor Name 11/16/2023 2 [place] [facility] Nuha Garcia [id number] Nuha Garcia 11/16/2023 1 [facility] - DOS ON OR AFTER 2022 - MEDICARE [place]AC[place]/ADV ANTAGE - PPO) Nuha Garcia [id number] Nuha Garcia Notes Date Note Type Note Provider Name and Address Organization Details Recorded Time 11/16/2023 text/html She presents for initial neurology evaluation of worsening memory over the last 6 months per her report, 2 years per her psychiatrist who referred her for evaluation. She is primarily Mozambican speaking and is accompanied by her daughter, Nadia Garcia who assists with Mozambican translation. She confirms that she is here for difficulty with memory and says that she began having difficulty about 6 months ago. Her daughter agrees. She says that what bothers her the most is that she forgets where she is going. We clarify, she knows where she wants to go but she forgets the directions to get there. These are places that she is known all of her life according to her daughter. Her daughter has noted increased difficulty with remembering important events like an upcoming doctor's appointment, for example, her daughter called her yesterday afternoon to remind her about today's appointment which she did not remember and then when she called her today to ask if she was ready, she again did not call that she had an appointment. Her daughter has also noted some other difficulties such as asking the same question within 6 or 7 minutes, for example, she asked about her granddaughter because she wanted to see her and repetitively asked several times where she might be. (She is emphatic during a momentary misunderstanding that she has not forgotten granddaughter herself!). Her daughter is also noted that she is forgetful about where she places things and gets in fights with other family members about it until she later discovered it was she herself that placed an item. She wonders why she gets upset and a little upset when/agitated/angry with family in this context. She currently lives with her partner/spouse. She has been taking care of her own medications by putting them in a pillbox and matching it up with the calendar. She has her own bank account and sometimes when she has difficulty with paying the rent, the building managers will call her daughter, Nadia. She also has another daughter who assists her with all of her other bills. Her daughter feels that the memory difficulties have been progressively worse over the last 6 months. She has also noted in the last 6 months that she is noticing a disagreeable odor, she is getting dizziness and nausea and often feels the need to lie down. During her neurologic examination, she mentions that she has noticed when she taps the end of her thigh, that her lower extremities have a brisk response. This has been going on for about 3 months. She mentions that she has anxiety a good number of times. She takes eszopiclone at night which she says helps her to sleep significantly and reduces fear when falling asleep she has been on it for a number of years. She was about to ask about 1 other thing, her daughter redirects her and says it is not related ( a pick at her scalp). Her psychiatrist who has referred her today has noted a progression of deficits in memory and language that have progressed over the last 2 years and has noted that a MoCA test was done with a result of 17. Past history is notable for anxiety, asthma, bipolar disorder, arthritis, high cholesterol, allergic rhinitis, depression, heart disease, panic disorder, thyroid disorder, tubal ligation. Family history notable for dementia and headache in her dad (per referral data, father and grandmother had Alzheimer's), there is a family history of diabetes, uncertain what type and tremor Ti Obrien MD [address] [place] [address] [place], [address], [facility] 11/22/2023 08:48:19 OBGyn Episode No OBEpisode recorded.
== END 2024-07-05 10:48 | disposition home or self-care (01) ==
LOC: HO.MAMMO 10:47
PROVIDERS: PCP Internal Medicine; Visit Provider Internal Medicine
DX: R92.343 Mammographic extreme density, bilateral breasts (principal)
CPT/HCPCS: 76642

== ENCOUNTER → 2024-07-05 11:00 | Outpatient (BNV) | payer OTHER, SELFPAY | PROVIDERS: PCP Internal Medicine; Visit Provider Internal Medicine | DX: R92.8 Other abnormal and inconclusive findings on diagnostic imaging of breast (principal) | CPT/HCPCS: 76642 ==

== ENCOUNTER 2024-10-19 09:56 | Outpatient (REF) | payer OTHER, SELFPAY ==
[2024-10-19 11:22] LABS: Estimated Average Glucose 174 mg/dL; Hemoglobin A1c % 7.7 % (<6.0)
[2024-10-19 12:23] LABS: Alanine Aminotransferase 75 U/L (0-31); Albumin Level 4.2 g/dL (3.5-5.0); Alkaline Phosphatase 87 U/L (39-117); Anion Gap 11 (12-20); Aspartate Amino Transferase 40 U/L (5-31); Bilirubin Total 0.4 mg/dL (0.0-1.0); Blood Urea Nitrogen 10 mg/dL (9-16); Calcium 9.4 mg/dL (8.4-10.2); Carbon Dioxide 27 mmol/L (22-29); Chloride 107 mmol/L (96-108); Cholesterol 143 mg/dL (<200); Estimated Glomerular Filt Rate > 60; Ferritin 163 ng/mL (10-250); Glucose Random 192 mg/dL (60-115); HDL Cholesterol 36 mg/dL (>40); LDL Cholesterol Calculated 79 mg/dL (<100); Potassium 4.1 mmol/L (3.3-5.1); Sodium 141 mmol/L (135-145); Thyroid Stimulating Hormone 2.32 uIU/mL (0.32-4.0); Total Protein 7.4 g/dL (6.5-8.0); Triglycerides 141 mg/dL (<150)
[2024-10-19 12:25] LABS: HBS Num1 1.78 mIU/mL (0-7.99); HBsAGNum1 0.28 S/CO (0.00-0.99); Hepatitis B Core Antibody Nonreactive (Nonreactive); Hepatitis B Surface Antigen Negative (Negative); ~HepC Num1 0.08 S/CO (0.00-0.79); ~Hepatitis B Surface Antibody NONREACTIVE (Nonreactive); ~Hepatitis C Antibody Nonreactive (Nonreactive)
[2024-10-19 13:50] LABS: Creatinine Urine 151.72 mg/dL; Microalbum/Creatinine Ratio Ur 5.9 ug/mg cr (<30)
[2024-10-25 05:23] LABS: Smooth Muscle Antibody <20 U (<20)
== END 2024-10-19 09:57 | disposition home or self-care (01) ==
LOC: HO.LAB 09:56
PROVIDERS: PCP Internal Medicine; Visit Provider Internal Medicine
DX: Z00.01 Encounter for general adult medical examination with abnormal findings (principal); R74.01 Elevation of levels of liver transaminase levels; F02.80 Dementia in other diseases classified elsewhere, unspecified severity, without behavioral disturbance, psychotic disturbance, mood disturbance, and anxiety; E78.00 Pure hypercholesterolemia, unspecified; E11.9 Type 2 diabetes mellitus without complications; E03.9 Hypothyroidism, unspecified
CPT/HCPCS: 36415; 80053; 80061; 82043; 82570; 82728; 83036; 84443; 86015; 86704; 86706; 86803; 87340

== ENCOUNTER 2025-02-20 15:42 | Outpatient (REF) | payer OTHER, SELFPAY ==
--- OUTSIDE RECORDS SUMMARY | 2025-02-20 16:29 | XMS_ITS | Data Portability ---
Author Organization [facility] ED Outline App, m-spatial Address [address] [place] [address] Care Team Providers Care Gas Desulfurizer Name Role Phone FATOUMATA BUCKNER Referring Provider CYRUS OCONNOR Primary Care Provider [phone] Assessment Encounter Date Assessment Date Assessment LastModified by Organization Details LastModified Time 11/16/2023 11/16/2023 IMPRESSION: Mild to moderate cognitive impairment, possible Alzheimer's disease, differential includes atypical Parkinson's disease (which we did not discuss today). Neurologic examination is notable for cognitive impairment with particular difficulties with time, memory and at times comprehension (in Faroese). Deep tendon reflexes are unusually brisk, particularly [...] ezetimibe 10 mg, eszopiclone 1 mg PLAN: Nuha Garcia November 16, 2023 I expect you will hear from them but if you do not hear in ~ 1 week then please [facility] ([facility]) [address] [place] [address] Ph. , Please go to the laboratory at your convenience for the following labs (please go at least 2 weeks before follow-up) [facility] (Lab) [address] [place] [address] Ph. , Check vitamin B12, serum Check folate, serum Check mma (methylmalonic acid), serum Check homocysteine, serum or plasma Check T4, free, serum Check vitamin D, 25-hydroxy, total, serum Check RPR (rapid plasma reagin), serum Follow-up in ~4, possibly 6 weeks (after brain MRI) to go over laboratories and MRI results and to discuss next steps Discussed with Dr. Obrien, impression and plan developed with him [email or web address] Not available 11/16/2023 19:47:46 08/24/2024 08/24/2024 IMPRESSION: cognitive impairment, . MoCA = : Mild (low end of that range), September 10, 2023, per psychiatry chart note. November 16, 2023 FAQ = 19 (functional activities, filled out by daughter Nadia Garcia) November 16, 2023 Neurologic examination is notable for cognitive impairment with particular difficulties with time, memory and at times comprehension (in Faroese). Deep tendon reflexes are unusually brisk, particularly the patella and are frequently self elicited from slight tap of the distal quadriceps by the patient herself. December 03, 2023 Brain MRI without contrast: Normal, per dictation [facility] -- August 24, 2024 further cognitive worsening x 6 months per daughter who sees her every day Medications per patient November 16, 2023: quetiapine 100 mg, levothyroxine 100mcg, sertraline 100 mg, aspirin 81 mg, 81 mg, omeprazole 20 mg, atorvastatin 80 mg, metoprolol, ezetimibe 10 mg, eszopiclone 1 mg >>>>>>>>>>>>Januar y 2024 Brain MRI normal is a comforting sign that neurological cause of worsening memory is present. This possibility is not excluded. Blood work is not done. We agree that we will resend it. The patient is not a vegetarian so B12 deficiency is unlikely. She has brisk reflexes so I will add Ken's antibodies on the very small possibility of Ken's encephalopathy. That said, her mood has also been worsening. Pseudodementia from mood disorder is a common finding. Neurological abnormality that might be found at this point is rare. Daughter says psychiatry has talked to their neurologist and medication has been agreed upon. Perhaps another neurologist is now involved. The daughter will check and if this is the case we will withdraw if another neurologist has determined a diagnosis. Daughter wonders if medication effect could be involved. She is on a lot of medications. I did not go over these today, we only went over them November 2023. In any case, I defer to medication prescribers for such evaluation at this point. PLAN: Nuha Garcia August 24, 2024 Check vitamin B12, serum Check folate, serum Check mma (methylmalonic acid), serum Check homocysteine, serum or plasma Check T4, free, serum ; ken Ab's Check vitamin D, 25-hydroxy, total, serum Check RPR (rapid plasma reagin), serum Follow-up in 3 Months [email or web address] Not available 08/24/2024 11:34:34 11/21/2024 11/21/2024 IMPRESSION: cognitive impairment, . MoCA = 17/30: Mild (low end of that range), September 10, 2023, per psychiatry chart note. November 16, 2023 FAQ = 19 (functional activities, filled out by daughter Nadia Garcia) November 16, 2023 Neurologic examination is notable for cognitive impairment with particular difficulties with time, memory and at times comprehension (in Faroese). Deep tendon reflexes are unusually brisk, particularly the patella and are frequently self elicited from slight tap of the distal quadriceps by the patient herself. December 03, 2023 Brain MRI without contrast: Normal, per dictation [facility] -- August 24, 2024 further cognitive worsening x 6 months per daughter who sees her every day Medications per patient November 16, 2023: quetiapine 100 mg, levothyroxine 100mcg, sertraline 100 mg, aspirin 81 mg, 81 mg, omeprazole 20 mg, atorvastatin 80 mg, metoprolol, ezetimibe 10 mg, eszopiclone 1 mg --November 21, 2024 fluctuating memory, better for a month when off of zopiclone for sleep, with no worsening of sleep due to pharmacy issue. >>>>>>>>>>>>November 21, 2024 This significant fluctuation with transient zopiclone discontinuation increases the likelihood that the daughters speculation that medication relates to her memory problems is indeed a large part of why the patient is having memory problems. We do not have the blood work which the daughter says was done at [facility]. We will pursue this. We will make no further actions until we understand the situation better directly from the psychiatrist, both they are feeling of likelihood of pseudodementia from mood disorder and/or medication effect, and from the perspective of whether another neurologist is already involved. I was able to speak with Dr. Buckner, psychiatry. She has been seeing the patient for ~1.5 years. She has given the patient a diagnosis of anxiety, depression with psychotic features. As to the daughters statement that she carries a diagnosis of bipolar disorder, Dr. Buckner does not know if there was a previous psychiatrist or if she was on psychiatric medications prior to seeing Dr. Buckner, as the patient was an erratic historian. The patient initially gave a history of a mixture of psychiatric and memory symptoms anxiety and forgetfulness of where she is going when she is driving and lack of memory of what happened a month ago. This is why she has referred her to neurology. I am the only neurologist she has referred the patient to there is no other neurologist. I mention the normal December 03, 2023 brain MRI ordered by us at the patient's first visit November 16, 2023. I mention that we have ordered blood work both at that visit and her second visit, August 24, 2024 but we have no results. Today, at her third visit, her daughter says that results were done at [facility]. We will try to find them. I mentioned the transient improvement on Zoplicone:: Without worsening of sleep. She understands and will discontinue that medication at the next follow-up. She understands that from my point of view I have a very low suspicion of a rare degenerative or autoimmune dementia. We agreed on a plan from my point of view: After we get the standard laboratory results back, if they do not show an issue, I will move toward EEG and autoimmune encephalitis panel. If these are normal, I will consider rare dementia in a 54-year-old off the table at least for the time being. If there is normal brain MRI and normal EEG I do not believe CSF panel for autoimmune encephalitis will be needed. >>>>>>>>>>>>Kory 2024 Brain MRI normal is a comforting sign that neurological cause of worsening memory is present. This possibility is not excluded. Blood work is not done. We agree that we will resend it. The patient is not a vegetarian so B12 deficiency is unlikely. She has brisk reflexes so I will add Ken's antibodies on the very small possibility of Ken's encephalopathy. That said, her mood has also been worsening. Pseudodementia from mood disorder is a common finding. Neurological abnormality that might be found at this point is rare. Daughter says psychiatry has talked to their neurologist and medication has been agreed upon. Perhaps another neurologist is now involved. The daughter will check and if this is the case we will withdraw if another neurologist has determined a diagnosis. Daughter wonders if medication effect could be involved. She is on a lot of medications. I did not go over these today, we only went over them November 2023. In any case, I defer to medication prescribers for such evaluation at this point. PLAN: Nuha Garcia November 21, 2024 RESULTS PENDING: Check vitamin B12, serum Check folate, serum Check mma (methylmalonic acid), serum Check homocysteine, serum or plasma Check T4, free, serum ; ken Ab's Check vitamin D, 25-hydroxy, total, serum Check RPR (rapid plasma reagin), serum Follow-up in 3 Months [email or web address] Not available 11/21/2024 09:05:22 Plan of Treatment Reminders Order Date Submit Date Provider Last Modified By Organization Details Last Modified Time Details Appointments None recorded. Lab vitamin B12, serum 2024 025 [facility] (Lab), [address] [place] [address], [address], 5 04:03:28 folate, serum 2024 025 [facility] (Lab), [address] [place] [address], [address], 5 04:03:29 mma (methylmalo fanny acid), serum 2024 025 [facility] (Lab), [address] [place] [address], [address], 5 04:03:29 homocystein e, serum or plasma 2024 025 [facility] (Lab), [address] [place] [address], [address], 5 04:03:29 T4, free, serum - E07.9 2024 025 [facility] (Lab), [address] [place] [address], [address], 5 04:03:29 thyroglobul in Ab, serum - E05.00 2024 025 [facility] (Lab), [address] [place] [address], [address], 5 04:03:30 thyroid peroxidase (tpo) Ab, serum - E05.00 2024 025 [facility] (Lab), [address] [place] [address], [address], 5 04:03:30 TSH, serum or plasma - E07.9 2024 025 [facility] (Lab), [address] [place] [address], [address], 5 04:03:30 vitamin D, 25-hydroxy, total, serum - E55.9 2024 025 [facility] (Lab), [address] [place] [address], [address], 5 04:03:29 RPR (rapid plasma reagin), serum - A53.9 2024 025 [facility] (Lab), [address] [place] [address], [address], 5 04:03:30 vitamin B12, serum [address] (Lab), [address] [place] [address], [address], 4 16:33:19 folate, serum [address] (Lab), [address] [place] [address], [address], 4 16:33:19 mma (methylmalo fanny acid), serum [address] (Lab), [address] [place] [address], [address], 4 16:33:20 homocystein e, serum or plasma [address] (Lab), [address] [place] [address], [address], 4 16:33:20 T4, free, serum - E07.[address] (Lab), [address] [place] [address], [address], 4 16:33:20 vitamin D, 25-hydroxy, total, serum - E55.[address] (Lab), [address] [place] [address], [address], 4 16:33:20 RPR (rapid plasma reagin), serum - A53.[address] (Lab), [address] [place] [address], [address], 4 16:33:20 Referral None recorded. Procedures None recorded. Surgeries None recorded. Imaging MRI, brain, w/o contrast - For evaluation of memory loss [address] [facility] ([facility] [address] [facility] [place], [address], 10:36:32 Medication Orders None recorded. Patient TargetsNo targets recorded. Patient Instructions Encounter Date Encounter Id Patient Instructions Last Modified By Organization Details Last Modified Time 11/16/2023 [id number] Discussion acros s issues of diagnoses and management and same day associated chart review and management greater than 50% greater than 90 minutes [email or web address] Not available 11/16/2023 19:51:04 08/24/2024 [id number] Discussion acros s issues of diagnoses and management and same day associated chart review and management greater than 50% greater than 40 minutes [email or web address] Not available 08/24/2024 11:35:00 11/21/2024 [id number] Discussion acros s issues of diagnoses and management and same day associated chart review and management greater than 50% greater than 40 minutes [email or web address] Not available 11/21/2024 08:09:05 Reason for Referral None Reported. Results Created Date Observation Date Name Description Value Unit Range Abnormal Flag Note LastModifiedBy Organization Detail LastModifiedTime 12/06/19 24 12/03/2023 MRI[facility] brain + [facility] Access ion Number : [id number] Patisolange t Name: Nuha Garcia l Record Number : [id number] Date of : 1970 Date of Exam: 2023 Referr ing Physic josef: Em Calvo [facility] [address] [facility] [address] Exam: MR Brain (C-) CPT 48168 Room Descri ption: [place] Siem Espr 1.5 MRI of the brain withou [...] brain. Electr onical ly Signed By: Bo [address]res[address] [place] [address] [facility] ([facility]) [address] [place], [address], 12/07/2023 08:55:27 Result Notes Documentation Provider Name and Address Organization Details Recorded Time Mri, Brain + Brain Stem, W/o Contrast : [facility] Accession Number: [id number] Patient Name: Nuha Garcia Date of : 1970 Date of Exam: 12-03-2023 Referring Physician: Em Calvo [facility] [address] [place] [address] Exam: MR Brain (C-) CPT 98318 Room Description: [place] Siem Espr 1.5 MRI of the brain without contrast. HISTORY: Hallucinations. COMPARISON: None. FINDINGS: The ventricles, cisterns and sulci are normal. No hydrocephalus. There is no acute intracranial hemorrhage, tumor or infarct. No white matter disease is seen. There are normal flow-voids within major intracranial vessels. There is minimal mucosal thickening within right mastoid air cells. IMPRESSION: Normal brain. Electronically Signed By: Bo CALVO PA-C [address] [place], [place] [address]DanielMIGUEL, [phone], [facility] 12/07/2023 08:55:27 Procedures Surgical History Date Name Laterality Status Provider Name and Address Organization Details Recorded Time 11/21/2024 DATA REVIEW completed Ti Obrien MD [address] [place] [address] DanielMIGUEL odell, [phone], [facility] [employer] [facility] 11/21/2024 08:09:05 08/24/2024 DATA REVIEW completed Ti Obrien MD [address] [place], [place] [address]KusumDanielMIGUEL od[place], [phone], [facility] [employer] [facility] 08/24/2024 11:02:10 11/16/2023 DATA REVIEW completed EM CALVO PA-C [address] [place], [place] [address], [phone], [facility] [employer] [facility] 11/16/2023 18:36:12 Imaging Results None recorded. Procedure Notes None recorded. Medical Equipment None Reported. Allergies No known drug allergies Medications Name Sig Start Date Stop Date Status Note LastModified by Organization Details LastModified Time atorvastatin 80 mg tablet TAKE 1 TABLET BY MOUTH AT BEDTIME active Not Available Not Available No t Available metoprolol succinate ER 50 mg tablet,exten ded release 24 hr TAKE 1 TABLET BY MOUTH EVERY DAY active Not Available Not Available No t Available donepezil 10 mg tablet TAKE 1 TABLET BY MOUTH DAILY AT BEDTIME active Not Available Not Available N ot Available sertraline 100 mg tablet TAKE 2 TABLETS BY MOUTH EVERY DAY IN THE MORNING FOR DEPRESSION active Not Available Not Available N ot Available olanzapine 10 mg tablet TAKE 1 TABLET BY MOUTH EVERY DAY AT BEDTIME active Not Available Not Available No t Available aspirin 81 mg tablet,delay ed release TAKE 1 TABLET BY MOUTH DAILY active Not Available Not Available Not Available quetiapine 100 mg tablet TAKE 1 TABLET BY MOUTH AT BEDTIME active Not Available Not Available No t Available levothyroxin e 100 mcg tablet TAKE 1 TABLET BY MOUTH DAILY active Not Available Not Available Not Available omeprazole 20 mg capsule,lorenza yed release active Not Available Not Available Not [...] Available No t Available fluticasone propionate 50 mcg/actuatio n nasal spray,suspen mary SPRAY 1 SPRAY INTO EACH NOSTRIL TWICE DAILY active Not Available Not Available Not Available lisinopril 2.5 mg tablet TAKE 1 TABLET BY MOUTH EVERY DAY active Not Available Not Available No t Available ezetimibe 10 mg tablet TAKE 1 TABLET BY MOUTH DAILY active Not Available Not Available Not Available eszopiclone 1 mg tablet TAKE 1 TABLET BY MOUTH EVERY NIGHT AT BEDTIME FOR INSOMNIA active Not Available Not Available No t [...] 16:13:52 Medical History Condition Response Claustrophobia N Head Trauma/Injury N Hospitalizations N High Blood Pressure or Hypertension N Thyroid Problems N Depression Y Brain Tumors N Lung Disease N COPD or emphysema N Encephalitis N PTSD N Vitamin B12 deficiency N Heart Attack (MT) N Spine Problems N Obstructive Sleep Apnea N Alcoholism N Diabetes N Autoimmune disease N Bleeding Disorder N Arthritis Y Cerebral Palsy N Tuberculosis N Developmental Problems N Neck Problems N Cancer N Back Problems N Stroke N Asthma N Heartburn, acid reflux, GERD N Vitamin D Deficiency N Epilepsy/Seizures N Bipolar Disorder Y Sleep Disorder N Aneurysm N Hepatitis N Liver Disease N Heart Disease N Fibromyalgia N Headaches N High Cholesterol or Hyperlipidemia Y Osteoporosis N Kidney Disease N Gynecological HistoryNo gynecological history recorded. Obstetrics History GPAL:G 0 P 0 0 0 0 Past Encounters Encounter ID Performer Location Encounter Start Date Encounter Closed Date Diagnosis/Indication Diagnosis SNOMED-CT Code Diagnosis ICD10 Code Diagnosis Note [id number] EM CALVO PA-C [facility] [address] [place] [address] [place] [address] 11/16/2023 13:51:26 11/22/2023 10:28:27 Mild neurocognitive disorder 454740862 G31.84 Alzheimer's disease 2692 9004 G30.1 Vitamin B1 2 deficiency anemia due to dietary causes 917109447 D51.0 Abnormal t hyroid hormone 748933719 R94.6 Vitamin D deficiency 347 17404 E55.9 Syphilis 82336074 A53.9 [id number] Ti Obrien MD [facility] [address] [place] [address] [place] [address] 08/24/2024 10:17:00 08/24/2024 11:44:24 Mild neurocognitive disorder 833940492 G31.84 Vitamin B1 2 deficiency anemia due to dietary causes 110113157 D51.0 Abnormal t hyroid hormone 343535370 R94.6 Vitamin D deficiency 347 86504 E55.9 Syphilis 81138983 A53.9 [id number] Ti Obrien MD [facility] [address] [place] [address] [place] [address] 11/21/2024 08:07:07 11/21/2024 10:45:12 Mild neurocognitive disorder 145734894 G31.84 Health Concerns Section Related Observation LastModified by Organization Detai ls LastModified Time None Recorded Concern Status LastModified by Organization Details LastModified Time None Recorded Advance Directives Directive None Recorded Payers Insurance Date Sequence Insurance Name Policy Number Policy Morales Covered Member ID Morales Member ID Guarantor Name 02/12/2025 2 [place] [facility] Nuha Garcia [id number] Nuha Garcia 02/12/2025 1 [facility] - DOS ON OR AFTER 2022 - MEDICARE [place]VANTAGE [place] (MEDICARE REPLACEMENT/AD VANTAGE - PPO) Nuha Garcia [id number] Nuha Garcia Notes Date Note Type Note Provider Name and Address Organization Details Recorded Time 11/16/2023 text/html She presents for initial neurology evaluation of worsening memory over the last 6 months per her report, 2 years per her psychiatrist who referred her for evaluation. She is primarily Faroese speaking and is accompanied by her daughter, Nadia Garcia who assists with Faroese translation. She confirms that she is here [...] what type and tremor Ti Obrien MD [address] [place] [address], [phone], [facility] 11/22/2023 08:48:19 08/24/2024 text/html Neurology follow -up of worsening memory:-- Starting late 2022 per patient report in November 2023; starting ~2021 per psychiatry.--She is primarily Faroese speaking--She is accompanied by her daughter, Brooke Barroso, who sees her every day and helps as a caregiver. Not present: Another daughter, Nadia Garcia, who is busy and works and sees her ~weekly, who was present at initial consultation.. >>>>>>>>>>>>August 24, 2024Since November 16, 2023 Inititial neurology consultation, her daughter says there has been another brain MRI. Her mother is memory has worsened considerably over the last 6 months. I discussed that we have already known from November 2023 that she forgets where she is going when driving to familiar places; she forgets important appointments; she forgets conversation and reasks questions after 6 to 7 minutes; she forgets where she puts things. Her daughter describes the worsening as with these same daily activities but events are more frequent and worse. If she has forgotten a conversation, previously, when reminded she would remember at least part. Now, in such a situation, she is just black. Her mood has been worse over the last 6 months. >>>>>>>>>>>>November 16, 2023 presenting symptomatology:She confirms that she is here for difficulty [...] of diabetes, uncertain what type and tremor iT Obrien MD [address] [place] [address], [phone], [facility] 08/24/2024 11:35:18 11/21/2024 text/html Neurology follow -up of worsening memory:-- Starting late 2022 per patient report in November 2023; starting ~2021 per psychiatry.--She is primarily Faroese speaking--She is accompanied by her daughter, Brooke Barroso, who sees her every day and helps as a caregiver. Not present: Another daughter, Nadia Garcia, who is busy and works and sees her ~weekly, who was present at initial consultation. Since August 24, 2024 Neurology follow-up encounter, her daughter who sees her every day reports that her mother's memory has fluctuated. It was better for about a month when she was off one of her medications, zopiclone, a sleep medication because of a pharmacy mixup. She was remembering conversations better. Her daughter estimates the improvement was about 20%. She was still sleeping fine. She subsequently restarted zopiclone and her memory worsened back to the way it was, with worse memory for conversations. There was no additional improvement in sleep or other changes that her daughter could tell.She continues to drive. She has gotten lost. She has subsequently found where she was going herself she has not needed to call the police or others for help.Her daughter continues to manage her medications.Her daughter does not live with her and so she cannot say whether the patient was misplacing items less frequently.Her daughter only speaks with psychiatrist every other month. She has not been able to follow-up to find out anything additionally about the other neurologist with whom that psychiatrist has spoken with and with whom a medication was agreed on , according to the daughter's memory of her conversation with the psychiatrist.The daughter gave our front office a telephone number and a first name. We will try to contact that psychiatrist to understand if there is another neurologist already on the case. If there is, neither of the daughters today, nor the patient, know anything about this neurologist directly. >>>>>>>>>>>>August 24, 2024Since November 16, 2023 Inititial neurology consultation, her daughter says there has been another brain MRI. Her mother is memory has worsened considerably over the last 6 months. I discussed that we have already known from November 2023 that she forgets where she is going when driving to familiar places; she forgets important appointments; she forgets conversation and reasks questions after 6 to 7 minutes; she forgets where she puts things. Her daughter describes the worsening as with these same daily activities but events are more frequent and worse. If she has forgotten a conversation, previously, when reminded she would remember at least part. Now, in such a situation, she is just black. Her mood has been worse over the last 6 months. >>>>>>>>>>>>November 16, 2023 presenting symptomatology:She confirms that she is here for difficulty [...] what type and tremor Ti Obrien MD [address] [place] [address] [place], [phone], [facility] Neurology [facility] 11/21/2024 09:05:25 OBGyn Episode No OBEpisode recorded.
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
[2025-02-20 17:16] LABS: Hemoglobin A1C 379.0213 umol/L; Total Hemoglobin (HGBA1C) 3607.1221 umol/L
[2025-02-20 17:52] LABS: Alanine Aminotransferase 85 U/L (0-31); Albumin Level 4.5 g/dL (3.5-5.0); Alkaline Phosphatase 102 U/L (39-117); Anion Gap 12 (12-20); Aspartate Amino Transferase 48 U/L (5-31); Blood Urea Nitrogen 11 mg/dL (9-16); Calcium 9.6 mg/dL (8.4-10.2); Carbon Dioxide 26 mmol/L (22-29); Chloride 103 mmol/L (96-108); Estimated Glomerular Filt Rate > 60; Potassium 4.1 mmol/L (3.3-5.1); Sodium 137 mmol/L (135-145); Total Protein 7.4 g/dL (6.5-8.0)
[2025-02-20 17:57] LABS: Thyroid Stimulating Hormone 2.26 uIU/mL (0.32-4.0)
[2025-02-20 17:59] LABS: Vitamin B12 595 pg/mL (200-900)
== END 2025-02-20 15:43 | disposition home or self-care (01) ==
LOC: HO.LAB 15:42
PROVIDERS: PCP Internal Medicine; Visit Provider Internal Medicine
DX: E11.65 Type 2 diabetes mellitus with hyperglycemia (principal); F02.80 Dementia in other diseases classified elsewhere, unspecified severity, without behavioral disturbance, psychotic disturbance, mood disturbance, and anxiety; E03.9 Hypothyroidism, unspecified; R74.01 Elevation of levels of liver transaminase levels
CPT/HCPCS: 36415; 80053; 82607; 83036; 84443

== ENCOUNTER 2025-04-23 15:47 | Outpatient (REF) | payer OTHER, SELFPAY ==
[2025-04-23 17:19] LABS: Hemoglobin A1C 230.3736 umol/L; Total Hemoglobin (HGBA1C) 3519.4655 umol/L
[2025-04-23 17:39] LABS: Alanine Aminotransferase 42 U/L (0-31); Albumin Level 4.7 g/dL (3.5-5.0); Alkaline Phosphatase 69 U/L (39-117); Anion Gap 12 (12-20); Aspartate Amino Transferase 32 U/L (5-31); Blood Urea Nitrogen 3 mg/dL (9-16); Calcium 9.7 mg/dL (8.4-10.2); Carbon Dioxide 27 mmol/L (22-29); Chloride 108 mmol/L (96-108); Estimated Glomerular Filt Rate > 60; Potassium 3.5 mmol/L (3.3-5.1); Sodium 143 mmol/L (135-145); Total Protein 7.6 g/dL (6.5-8.0)
== END 2025-04-23 15:48 | disposition home or self-care (01) ==
LOC: HO.LAB 15:47
PROVIDERS: PCP Internal Medicine; Visit Provider Internal Medicine
DX: E11.9 Type 2 diabetes mellitus without complications (principal); E03.9 Hypothyroidism, unspecified; F02.80 Dementia in other diseases classified elsewhere, unspecified severity, without behavioral disturbance, psychotic disturbance, mood disturbance, and anxiety; R74.01 Elevation of levels of liver transaminase levels; R92.8 Other abnormal and inconclusive findings on diagnostic imaging of breast
CPT/HCPCS: 36415; 80053; 83036

== ENCOUNTER 2025-05-08 11:47 | Outpatient (REF) | payer OTHER, SELFPAY ==
[2025-05-08 13:09] LABS: Syphilis Screen Nonreactive (Nonreactive)
[2025-05-08 13:17] LABS: Free T4 (Free Thyroxine) 0.99 ng/dL (0.71-1.85); Thyroid Stimulating Hormone 2.64 uIU/mL (0.32-4.0)
[2025-05-08 13:28] LABS: Folate 8.3 ng/mL (> or = 4.0); Vitamin B12 337 pg/mL (200-900)
--- OUTSIDE RECORDS SUMMARY | 2025-05-08 14:55 | XMS_ITS | Patient Health Record ---
Author Organization [facility] Address [address] [place] [address] Care Team Providers Care Transport Analyst Name Role Phone Dominga Stewart Primary Care Provider UnavailGabriele Sweeney Unavailable [phone] Allergies No Known Allergies Reason For Referral [...] HCl 10 MG TAKE 1 TABLET BY [facility] EVERY DAY Oral for 90 Active Fluticasone [...] Problem Screening for malignant neoplasm of colon (502966455) Encounter for screening for malignant neoplasm of colon (Z12.11) Active confirmed Problem 947146593 History of adenomatous polyp of colon (Z86.010) Active confirmed Problem Dysphagia (63719605) Dysphagia (R13.10) Active confirmed Problem 723645784 Gastroesophageal reflux disease without esophagitis (K21.9) Active confirmed Problem Gastritis (0651411) Gastritis (K29.70) Active c onfirmed Problem Gastroesophageal reflux disease (542640517) Esophageal reflux disease (K21.9) Active confirmed Problem Diverticulosis of colon (521211594) Diverticulosis of colon (K57.30) Active confirmed Plan Of Treatment Future Test Test Name Order Date UPPER GI ENDOSCOPY BALLOOON DILATION OF ESOPH 01/22/2022 COLONOSCOPY 01/22/2022 Insurance Providers Payer Name Payer Address Payer Phone Subscriber Number Group Number Insured Name Patient Relationship to Insured Coverage Start Date Coverage End Date [facility] [address] [place] [address] [id number] CASH THOMAS Self - patient is the insured Medical (General) History Medical History History ICD Code asthma anxiety depression hypercholesterolemia bipolar disorder urinary incontinence hypothyroidism Denies DE,DM,CVA,renal disease Sleep apnea-going to be gett ing [...]
[2025-05-09 19:03] LABS: Thyroglobulin Antibodies <1 IU/mL (< or = 1)
== END 2025-05-08 11:48 | disposition home or self-care (01) ==
LOC: HO.LAB 11:47
PROVIDERS: PCP Internal Medicine; Visit Provider Psychiatry & Neurology Neurology
DX: R94.6 Abnormal results of thyroid function studies (principal); A53.9 Syphilis, unspecified; E55.9 Vitamin D deficiency, unspecified; D51.0 Vitamin B12 deficiency anemia due to intrinsic factor deficiency
CPT/HCPCS: 36415; 82306; 82607; 82746; 83090; 83921; 84439; 84443; 86376; 86780; 86800

== ENCOUNTER 2025-06-11 14:20 | Outpatient (REF) | payer OTHER, SELFPAY ==
--- NOTE | ~2025-06-11 | US_ITS ---
EXAMINATION(S): 1. MM DIAGNOSTIC DIGITAL BREAST TOMOSYNTHESIS, BILATERAL 2. TARGETED ULTRASOUND OF THE BILATERAL BREASTS CLINICAL INFORMATION: This is a six month follow-up of bilateral sonographic findings, as follows: Right: 9:00-10:00 2 cm from the nipple Left: 8:00 3 cm from the nipple. COMPARISON: Comparison made to multiple prior mammograms, most recent September 03, 2023, and most remote October 25, 2018. TECHNIQUE: Digital breast tomosynthesis is performed in both the mediolateral oblique and craniocaudal views along with computer-aided detection (CAD). Synthesized 2D images are generated from the tomosynthesis. Prior breast ultrasounds on September 03, 2023 and July 05, 2024. FINDINGS: BREAST COMPOSITION: The breasts are heterogeneously dense, which may obscure small masses. RIGHT BREAST: No significant masses, suspicious calcifications or other abnormalities are seen. Targeted ultrasound of the right breast was performed at the location of the previously described sonographic finding. The survey shows a 0.8 x 0.3 x 0.4 cm probable cluster of microcysts at 9 o'clock position 2 cm from the nipple. No internal vascularity demonstrated with color Doppler evaluation. Prior measurements were 0.6 x 0.6 x 0.4 cm in July 2024 and 0.6 x 0.6 x 0.4 cm in September 2023. LEFT BREAST: No significant masses, suspicious calcifications or other abnormalities are seen. Note that the mammographic correlate for the benign simple cysts located at 3 o'clock position at 7 cm from the nipple (evaluated in 2021) is no longer seen. Targeted ultrasound of the left breast was performed at the location of the previously described sonographic finding. The survey centered at 8 o'clock position 3 cm from the nipple was unable to identify the previously seen probable cluster of cysts. US/US Breast BI Limited Mamm Only IMPRESSION: RIGHT BREAST: Probable cluster of microcysts at 9 o'clock position 2 cm from the nipple. No internal vascularity demonstrated with color Doppler evaluation. Probably benign. A 6-month right breast ultrasound recommended. LEFT BREAST: Previously suggested cyst/cluster of cysts are no longer seen. Negative, no evidence of malignancy. Normal interval follow-up is recommended in 12 months. ASSESSMENT: BI-RADS: Category 2: Benign RECOMMENDATION: 6 Month F/U Results were provided to the patient at time of visit by the technologist. This patient's information was entered into a reminder system with a target due date for their next mammogram. Electronically signed by: Sergio Gutierrez MD 06/11/2025 03:28 PM LETTY
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
== END 2025-06-11 14:21 | disposition home or self-care (01) ==
LOC: HO.MAMMO 14:20
PROVIDERS: PCP Internal Medicine; Visit Provider Internal Medicine
DX: N60.02 Solitary cyst of left breast (principal); N60.01 Solitary cyst of right breast
CPT/HCPCS: 76642; 77062; 77066

== ENCOUNTER → 2025-06-11 14:30 | Outpatient (BNV) | payer OTHER, SELFPAY | PROVIDERS: PCP Internal Medicine; Visit Provider Radiology Body Imaging | DX: R92.8 Other abnormal and inconclusive findings on diagnostic imaging of breast (principal) | CPT/HCPCS: 76642; 77066; G0279 ==